=== PATIENT | female | born 1945 | race Caucasian/White ===

== ENCOUNTER 2016-04-27 05:25 | Emergency (ER) | payer OTHER ==
[~2016-04-27 05:25] MED LIST: AFRIN NASAL SP0.05 %; ALDACTONE25 MG PO; AMOXICILLIN500 M1 PO; ANTACID ANTI GAS PO; ASPIRIN 81 LOW81 MG PO; ATORVASTATIN CA40 MG PO; AUGMENTIN250 MG/5 M PO; CALCITRIOL0.25 MCG PO; CEFTIN500 MG PO; COUMADIN4 MG PO; COUMADIN5 MG PO; DITROPAN XL10 MG PO; FUROSEMIDE40 MG PO; GABAPENTIN300 MG; GABAPENTIN300 MG PO; GABAPENTIN600 MG PO; GLIMEPIRIDE1 MG PO; IRON325 MG PO; LEVAQUIN250 MG PO; LEVOTHYROXINE112 MCG PO; LISINOPRIL10 MG PO; LOTRIMIN AF1 % TOP; NITROFURANTOIN50 MG PO; NORTRIPTYLINE H10 MG PO; NYSTATIN100000 M2 TOP; OMEPRAZOLE20 M1 PO; OXYBUTYNIN CHLOR5 MG PO; OYSCO 500 PO; OYSTER SHELL CA1 TA5; PANTOPRAZOLE SO20 MG PO; PERCOCET1 TA1 PO; POLYETHYLENE; ROXICODONE5 MG PO; SPIRONOLACTONE25 MG PO; VENLAFAXINE H37.5 M1 PO; VITAMIN B-121000 MCG; VITAMIN D-31000 UNIT PO; WARFARIN SODIUM5 MG PO; [UNRECOGNIZED DRUG - OTHER]
--- NOTE | 2016-04-27 07:34 | DIAGNOSTIC IMAGING REPORT ---
PROCEDURE: CT CERVICAL SPINE W/O CONTRAST INDICATION: PAIN TECHNIQUE: Axial CT images were obtained through the cervical spine. Coronal and sagittal reformations were created. No comparison. COMPARISON: None. FINDINGS: Limited exam due to motion and ventral hardware artifact There is degenerative remodelling at the craniocervical junction and endplate spurring at the C1 lateral masses. Hypertrophic degeneration around the odontoid is present. Facet joint ankylosis bilaterally from C2-C5. Trace grade 1 anterolisthesis C3-4. Partial vertebral body ankylosis at C4-5. Endplate sclerosis inferiorly at C5 and throughout C6 with anterior and posterior endplate spurs. Trace anterolisthesis C7 on T1. No vertebral body fractures are visible. No pathologic subluxation. Straightening with slight kyphosis of the mid cervical spine. Severe disc height loss C4-C7. Significant facet arthropathy at most levels and multilevel bilateral foraminal narrowing. Moderate bony central canal stenosis at C5-6. No suspicious densities in the central canal. There is a tortuous, medial course of carotid arteries bilaterally. There is enlarged, calcified nodule measuring 9 mm in short axis in the retropharyngeal space at the C4-5 level, probably lymph node. No suspicious prevertebral soft tissue swelling. Calcifications in the right lobe of the thyroid gland. Another calcified lymph node dorsal to the right thyroid gland. Patent airway. Normal lung apices. IMPRESSION: 1. Given limitations, intact cervical spine. 2. Significant degenerative changes throughout the cervical spine, including posterior element ankylosis C2-C5, severe disc height loss C4-C7, endplate spurring, and central canal narrowing at C5-6. These result in multilevel bilateral foraminal narrowing as described. 3. Two calcified lymph nodes, one in the retropharyngeal space. 4. Findings called to the emergency room. All CT scans at this facility use dose modulation, iterative reconstruction, and/or weight-based dosing when appropriate to reduce radiation dose to as low as reasonably achievable.
--- NOTE | 2016-04-27 07:37 | DIAGNOSTIC IMAGING REPORT ---
PROCEDURE: CT HEAD WITHOUT CONTRAST INDICATION: Fell out of bed TECHNIQUE: Axial CT images were acquired through the head. Coronal and sagittal reformations were created. Thin slice axial CT images were obtained through the facial bones. Coronal and sagittal reformations were created. COMPARISON: 07/28/2015 FINDINGS: Head CT: Exam limited by patient motion. Mild to moderate cerebral cortical atrophy and moderate prominence of the ventricular system, stable. Scattered small patchy hypodensity in the periventricular and subcortical white matter. Focal hypodensity in the basal ganglia bilaterally, focal hypodensity in the left thalamus, right external and internal capsule. No new cortical defects. No intracranial hemorrhage or extraaxial fluid collections. Ventricles are normal in size, shape and position. There is no mass, mass effect or midline shift. The chavez-white matter differentiation is normal. There is no edema. Mild calcific atherosclerosis of the intracranial internal carotid arteries. The calvarium is intact. A lobular soft tissue opacification of the left sphenoid sinus, improved compared to the previous study and mild thickening of the ethmoids. Left-sided mastoid effusion. Mild diffuse soft tissue swelling over the frontal region centered just to the left of midline. Facial bones CT: Exam limited by motion. Mildly impacted left nasal bone fracture. No other fracture. Lobular sphenoid sinus disease with opacification of both sphenoid outflow tracts and mild thickening of the mucosa throughout the ethmoids. Small left mastoid effusion layering dependently. [place] morphology of nasal turbinate sac consistent with allergic rhinitis. Degenerative changes at the atlantodental interval. IMPRESSION: 1. No CT evidence of acute intracranial process. 2. Mild atrophy of the chronic prominence of the ventricular system slightly out of proportion. 3. Lacunar infarcts in the left thalamus and right deep white matter tracts. 4. Sphenoid sinus disease, improved compared to priors. 5. Mildly impacted nasal bone fracture. 6. Frontal soft tissue swelling without other underlying fracture. 7. Findings discussed with Dr. Palma at [address] scans at this facility use dose modulation, iterative reconstruction, and/or weight-based dosing when appropriate to reduce radiation dose to as low as reasonably achievable.
--- NOTE | 2016-04-27 07:45 | DIAGNOSTIC IMAGING REPORT ---
PROCEDURE: XR HAND 3 OR 4 VIEWS - RIGHT INDICATION: TRAUMA/INJURY TECHNIQUE: Three views of the right hand. COMPARISON: None. FINDINGS: Decreased mineralization. Chronic remodelling and flattening of the scaphoid resulting in collapse of the proximal carpal row and loss of articular space between carpal bones. Osteoarthritic remodelling at the first carpal metacarpal joint. No definite fractures. Diffuse joint space loss throughout the interphalangeal joints. Large spurs of the second through fourth metacarpal heads and slight subluxation at the MCP joints two through four. Soft tissue swelling at the base of the second and fourth digits. No suspicious soft tissue calcifications or foreign bodies. IMPRESSION: 1. No visible fractures. 2. Osteopenia. 3. Diffuse arthritic changes through the wrist and hand
--- NOTE | 2016-04-27 08:06 | DIAGNOSTIC IMAGING REPORT ---
PROCEDURE: XR CHEST 1 VIEW INDICATION: TRAUMA TECHNIQUE: Single view chest. 07:51 hours COMPARISON: 12/25/2015 FINDINGS: Stable cardiomediastinal contour and central vessels. Low lung volumes. Visible lung blanc are clear. Embolization coils project in the left lower lung. No pneumothorax. Visible osseous structures are intact. Right humeral prosthesis partially seen. IMPRESSION: 1. No evidence of acute chest trauma.
--- NOTE | 2016-04-27 08:45 | ED NURSING NOTES ---
Clinical Report - Nurses [facility] [address] [place] [address] 04/27/2016 5:28 [id number] Triage time 05:30. Acuity: LEVEL 3. Chief Complaint: FALL OUT OF BED (last night at "about 2030"). TELMA COMA SCORE: Telma Coma Scale: 14- eyes open spontaneously (4); best verbal response- disoriented (4); best motor response- obeys commands (6). --05:38 Eris Bolivar R.N. 05:30 04/27/16. BP: 146/87. HR: 107. RR: 20. O2 saturation: 96% on room air. Temp: 98.2 F. Pain level now: 09/14. --05:38 Eris Bolivar R.N. 0538 - Bedside POC glucose= 323. --06:19 Eris Bolivar R.N. Weight: 70.3 kg stated. Height/Length: 66 inches Per Patient. BMI: 25. --05:33 Eris Bolivar R.N. Medications Antacid Oral. Asa 81mg day. Atorvastatin Calcium Oral 80 mg, daily. Augmentin Oral (Tablet 875-125 mg) 1 tablet, 2x a day. Calcitriol 0.25mg day. Ferrous Sulfate Oral. Furosemide Oral 40 mg, daily. Gabapentin Oral. Levothyroxine Sodium Oral 112 mcg, daily. Lisinopril Oral 20 mg, daily. Lotrimin cream 25 powder prn . Nitrofurantoin Monohyd Macro Oral (Capsule 100 mg). --05:34 Eris Bolivar R.N. Nortriptyline HCl Oral 10 mg, at bedtime. Nystatin External. Omeprazole Oral 20 mg, daily. Oxybutynin Chloride Oral 5 mg, daily. OxyCODONE HCl Oral 10 mg, 4x a day as needed. Oyster shell 500mg/200mg day. Polyerhylene glycol 3350 powder, day. Spironolactone Oral 25 mg, daily. Venlafaxine HCl ER Oral 225mg day. Vit b - 12 1000mg day. Vit d-3 2000 mg day . Warfarin Sodium Oral 4 mg s/s//// 5mg onm//. --05:34 Eris Bolivar R.N. Allergies Sulfa Antibiotics. --05:34 Eris Bolivar R.N. History Arrived by EMS. Historian: patient. Unaccompanied. Location of injuries: neck, head, face and left knee. This occurred last night. She has had neck pain. Trauma activation: Pre-hospital notification of patient arrival was received. PAST MEDICAL HX: Diabetes mellitus. SOCIAL HX: Former smoker. Never smoker. Occasional alcohol use. No drug use. FALL RISK ASSESSMENT: Fall risk assessment completed. Risk factors identified include patient age greater than 65 years, history of fall and impairment of mobility. --05:38 Eris Bolivar R.N. PROBLEMS: Urinary Incontinence. Urinary. Abnormal Test. Renal Insufficiency. Hypotension. Renal Failure. GI Bleeding. Thyroid Disease. Hypertension. Congestive Heart Failure. Diabetes Mellitus. CVA - Cerebrovascular Accident. UTI - Urinary Tract Infection. Fall. Hereditary hemorrhagic telangiectasia. Anemia. Hyperlipidemia. Lower Extremity Pain. Arthritis. Sleep Apnea. PE. Gerd. Hypercholesterolemia. Anxiety. Anemia . Amp lt leg bka . DVT - Deep Venous Thrombosis. --05:35 Eris Bolivar R.N. ADDITIONAL SURGERIES: Amputation Below Knee. IVC Filter. --05:35 Eris Bolivar R.N. Interventions ID band on patient. To treatment room. --05:38 Eris Bolivar R.N. PHYSICAL ASSESSMENT GENERAL / NEURO / PSYCH: The patient is disoriented to time. RESPIRATORY: Respirations not labored. Decreased breath sounds diffusely over both lungs. CVS: Capillary refill less than 2 seconds. SKIN: ( patient has swelling and bruises around both eyes, abrasion to left knee, and 2 posterior pressure ulcers (approx stage 2) on left leg). --05:41 Eris Bolivar R.N. To room via stretcher. GENERAL / NEURO / PSYCH: ( If patient had LOC is unknown. EMS states that the patient had an unwitnessed fall from bed last night. the patient states that she was trying to set her cell phone on her nightstand and fell from her bed, around 2030 last night. Her facility staff (at [facility]) found her this morning on the floor.). --06:16 Eris Bolivar R.N. 06:20. EXTREMITIES: ( Patient's right ring finger is notably swollen circumferentially and bruised, painful to movement and palpation.). --06:28 Eris Bolivar R.N. NURSING PROGRESS NOTES Soft c-collar applied. Patient gowned. Reassurance given. The patient is calm and resting quietly. Two patient identifiers checked. Call light placed in reach. Side rails up x 2. Bed placed in lowest position. Brakes of bed on. Patient ready for evaluation- chart flagged. Patient waiting for evaluation. --05:43 Eris Bolivar R.N. 05:45 04/27/2016 Site #1 started via IV in the left antecubital space with an 20g angiocath, with aseptic technique and good blood return; one attempt. Blood drawn: rainbow set. Labeled in the presence of the patient and sent to the lab. Saline lock flushed with 10 mL saline. --05:47 Hetal Treviño R.N. 06:11. ( Patient returned from CT). --06:16 Eris Bolivar R.N. Call light placed in reach. Side rails up x 2. Bed placed in lowest position. Brakes of bed on. --06:17 Eris Bolivar R.N. <<STRICKEN ENTRY-- 06:59 04/27/2016 Started bag #1 500 mL IV Fluids IV NS (Saline); bolus of 500 mL over 1 hour(s) then at 100 mL/hr over 5 hour(s) via site #1 via IV pump. Allergies verified and confirmed 5 rights. IV patency established. IV site checked: no pain, redness, or swelling. IV flushed thoroughly pre- and post-medication administration. --06:59 Eris Bolivar R.N. --END STRIKE>> Change to Details. --07:00 Eris Bolivar R.N. 06:59 04/27/2016 Started bag #1 500 IV Fluids IV NS (Saline); bolus of 500 mL over 1 hour(s) then at 100 mL/hr over 4 hour(s) via site #1 via IV pump. Allergies verified and confirmed 5 rights. IV patency established. IV site checked: no pain, redness, or swelling. IV flushed thoroughly pre- and post-medication administration. --07:00 Eris Bolivar R.N. 07:00 04/27/16. 10 fr in/out catheterization placed. Reason for indwelling catheter: decubitus ulcer with incontinence. During procedure hand hygiene observed and sterile equipment and aseptic technique used. Return of yellow-colored clear urine; odor is foul-smelling. She tolerated procedure well (pericare completed following removal of catheter, skin around labia and on upper thighs excoriated. barrier cleanser utilized.). --07:11 Hetal Treviño R.N. Care transferred and report given (RICO Mckenna and RICO Kelley (ER Nurses, both received report and assumed patient care.)). --07:13 Eris Bolivar R.N. 07:14 04/27/16. BP: 151/84. HR: 106. RR: 14. O2 saturation: 98% on room air. Pain level now: 09/14. --07:15 Bala Hatfield R.N. Care transferred and report received (from RICO Quinonez). ( Pt resting in bed, daughter at bedside, introduced self, IVF infusing, Pt is alert, cooperative, updated her on POC.). --07:15 Bala Hatfield R.N. ( Pt resting in room, daughter and other visitor at bedside, Pt asking to eat and drink but denies other needs. Portable CXR completed.). --07:55 Bala Hatfield R.N. 07:54 04/27/16. Temp: 97.7 F. --07:55 Bala Hatfield R.N. 07:58 04/27/2016 IV Fluids IV NS via IV site #1 Rate Changed: bag #1 decreased to 100 mL/hr via IV pump. IV patency established. IV site checked: no pain, redness, or swelling. IV flushed thoroughly. Confirmed 5 Rights. --07:58 Bala Hatfield R.N. ( MD in to discuss POC with Pt and visitors. Pt to return to [facility] this morning.). --08:32 Bala Hatfield R.N. ( Accucheck of 334.). --08:48 Bala Hatfield R.N. 08:49 04/27/2016 Insulin REG IVP 6 unit given. via site #1. Allergies verified and confirmed 5 rights. IV patency established. IV site checked: no pain, redness, or swelling. IV flushed thoroughly pre- and post-medication administration. IVP given by RN. --08:49 Bala Hatfield R.N. 09:34 04/27/2016 IV Fluids IV NS Discontinued: bag #1 STOPPED upon discharge. Total amount infused: 655 ml mL. IV patency established. IV site checked: no pain, redness, or swelling. IV flushed thoroughly. --09:44 Bala Hatfield R.N. 09:40 04/27/2016 Site #1 removed upon discharge. Bandage applied. --09:45 Bala Hatfield R.N. 09:40 04/27/2016 Insulin REG IVP Response: no adverse reaction (Blood Glucose improving. 297 at 0924.). --09:45 Bala Hatfield R.N. DISPOSITION / DISCHARGE ( Rechecked Accucheck: 297. PT is resting in bed, awaiting transportation back to [facility]. IVF still infusing.). --09:24 Bala Hatfield R.N. 09:23 04/27/16. BP: 159/115. HR: 102. RR: 20. O2 saturation: 97% on room air. Temp: 97.5 F. Pain level now: 710. --09:24 Bala Hatfield R.N. Condition at departure: improved and stable. The goals identified in the patient's plan of care were met. No learning barriers present. Discharge instructions provided and reviewed with the family. Patient and family verbalized understanding. Written instructions provided in Irish. The patient was discharged by the physician. She was discharged to the [facility] and accompanied by family. She left the Emergency Department via ambulance and ([facility]) and on a stretcher. Driving (Ambulance). --09:40 Bala Hatfield R.N. 09:39 04/27/16. BP: 169/85. --09:40 Bala Hatfield R.N. Departure time: 09:43 Apr 27 2016. --09:44 Bala Hatfield R.N. Locked/Released at 04/27/2016 10:28 by Bala Hatfield R.N.
--- NOTE | 2016-04-27 08:45 | ED ORDER SUMMARY ---
..... Patient: ABBIE CANELA OrderSheet [facility] VisitID: [id number] [address] [place] [address] 71y, F Registration Date/Time: 04/27/2016 ORDER SHEET Weight: 70.3 kg (stated) Allergies: Sulfa Antibiotics GENERAL ORDERS: CT Head wo Cont Urgent (05:37 04/27/2016 [facility] [employer] Assistant verbal order read back to Vesna SEVILLA) (Ack 5:40 SRedmond) (6:21 DDavis R.N.) (6:22 GUnger) CT Cervical Spine wo Cont Urgent (05:37 04/27/2016 [facility] [employer] [facility] verbal order read back to Vesna SEVILLA) (Ack 5:40 SRedmond) (6:21 DDavis R.N.) (6:22 GUnger) CT Sinus/Facial Bones wo Cont Urgent (05:37 04/27/2016 [facility] [employer] Assistant verbal order read back to Vesna SEVILLA) (Ack 5:40 SRedmond) (6:21 DDavis R.N.) (6:22 GUnger) CBC w Diff Urgent (05:38 04/27/2016 [facility] [employer] [facility] verbal order read back to Vesna SEVILLA) (Ack 5:40 SRedmond) (5:43 DDavis R.N.) CMP Urgent (05:38 04/27/2016 [facility] [employer] [facility] verbal order read back to Vesna SEVILLA) (Ack 5:40 SRedmond) (5:43 DDavis R.N.) PT with INR Urgent (05:38 04/27/2016 [facility] [employer] [facility] verbal order read back to Vesna SEVILLA) (Ack 5:40 SRedmond) (5:43 DDavis R.N.) PTT Urgent (05:38 04/27/2016 [facility] [employer] [facility] verbal order read back to Vesna SEVILLA) (Ack 5:40 SRedmond) (5:43 DDavis R.N.) CPK Urgent (06:19 04/27/2016 EInderbitzen R.N. verbal order read back to Vesna SEVILLA) (Ack 6:21 SRedmond) (6:45 EInderbitzen R.N.) Hand 3 or 4V Right Urgent (06:23 04/27/2016 DDavis R.N. per protocol) (6:26 DDavis R.N.) UA-Culture if indicated Urgent (06:47 04/27/2016 Vesna SEVILLA) (Ack 6:49 SRedmond) (7:11 DDavis R.N.) Chest 1V Urgent (07:41 04/27/2016 Dilan verbal order read back to Vesna SEVILLA) (Ack 7:43 Dilan) (7:46 MCook R.N.) MEDICATION ORDERS: IV FLUIDS: IV Saline Lock (05:45 04/27/2016 Yessy Recinos verbal order read back to Vesna SEVILLA) (5:47 EIndercoyzen R.N.) IV NS : initial bolus 500 mL (1000 mL/hr), then 100 mL/hr for 4h (NOW); Urgent (06:50 04/27/2016 Vesna SEVILLA) (6:59 DDavis R.N.) Insulin Reg IV 6 units (HIGH ALERT MEDICATION, NOW) (08:32 04/27/2016 Vesna SEVILLA) (8:49 Yony R.N.) ORDER SHEET NOTES: [Electronically signed by Bala Hatfield R.N. (10:04/27/2016)] [Electronically signed by Saji Palma MD (09:26 04/28/2016)] [Electronically locked/signed by Bala Hatfield R.N. (10:04/27/2016)]
--- NOTE | 2016-04-27 08:45 | ED CLINICAL REPORT ---
Clinical Report - Physicians/Mid Levels [facility] [address] [place] [address] 04/27/2016 5:28 Patient: ABBIE CANELA Time Seen: 05:40. Arrived- By ambulance. Historian- patient and EMS personnel. History limited by dementia. Physical Exam limited by dementia. HISTORY OF PRESENT ILLNESS Location of injuries- head, face, neck and right hand. Chief Complaint: FALL. The injury occurred last night. Fell. Occurred at a jail. The patient complains of mild pain. No neck pain. The patient had loss of consciousness. (uncertain). (daughter reports that she is a resident of a jail. She says that the patient isnot ambulatory and that she is quite surprised that her mother fell out of the bed. She said that her mother is not able to roll herself in bed or transfer. It is unclear how long she might have been on the floor. The patient reports that she was reaching to put a phone on a nightstand and that's what caused her to fall however the daughter says that this is not possible. It is unclear how long the patient was on the floor for. She complains of pain in her nose and in her jaw. She also complains of pain in her right hand. Especially on her right fifth finger.). REVIEW OF SYSTEMS All systems otherwise negative, except as recorded above. PAST HISTORY Problems: Urinary Incontinence. Hypotension. Renal Failure. GI Bleeding. Thyroid Disease. Hypertension. Congestive Heart Failure. Diabetes Mellitus. CVA - Cerebrovascular Accident. UTI - Urinary Tract Infection. Hereditary hemorrhagic telangiectasia. Anemia. Hyperlipidemia. Lower Extremity Pain. Arthritis. Sleep Apnea. PE. Gerd. Hypercholesterolemia. Anxiety. Anemia . DVT - Deep Venous Thrombosis. Additional Surgeries: Amputation Below Knee. IVC Filter. Medications: Nortriptyline HCl Oral 10 mg, at bedtime. Nystatin External. Omeprazole Oral 20 mg, daily. Oxybutynin Chloride Oral 5 mg, daily. OxyCODONE HCl Oral 10 mg, 4x a day as needed. Oyster shell 500mg/200mg day. Polyerhylene glycol 3350 powder, day. Spironolactone Oral 25 mg, daily. Venlafaxine HCl ER Oral 225mg day. Vit b - 12 1000mg day. Vit d-3 2000 mg day . Warfarin Sodium Oral 4 mg s/s//// 5mg onm//. Antacid Oral. Asa 81mg day. Atorvastatin Calcium Oral 80 mg, daily. Calcitriol 0.25mg day. Ferrous Sulfate Oral. Furosemide Oral 40 mg, daily. Gabapentin Oral. Levothyroxine Sodium Oral 112 mcg, daily. Lisinopril Oral 20 mg, daily. Lotrimin cream 25 powder prn . Nitrofurantoin Monohyd Macro Oral (Capsule 100 mg). Allergies: Sulfa Antibiotics. SOCIAL HISTORY Resides in a jail. ADDITIONAL NOTES The nursing notes have been reviewed. PHYSICAL EXAM Vital Signs: 04/27/2016 05:30 BP: 146/87. HR: 107. RR: 20. O2 saturation: 96%. Temp: 98.2 F. Pain level now: 8/10. Have been reviewed. Appearance: Alert. Head: Left mandible: mild tenderness. Eyes: Pupils equal, round and reactive to light. EOM intact. Right periorbital area: ecchymosis. Left periorbital area: ecchymosis. ENT: No dental injury. Pharynx normal. Nose: moderate tenderness and mild swelling. No septal hematoma. Neck: Painless ROM. Non-tender. No vertebral tenderness. CVS: Heart sounds normal. Respiratory: Breath sounds normal. Abdomen: No visible injury. Soft and nontender. Bowel sounds normal. No organomegaly. No mass. Obese. Back: No tenderness. ROM normal. No vertebral point tenderness. Skin: Skin warm and dry. She has an medium superficial abrasion on the left knee. Extremities: Right ring finger: moderate tenderness and medium sized ecchymosis. Neurovascular intact distally. Pelvis stable. Right leg. (well healed BKA). Neuro: Altered mental status: confused. Eyes open spontaneously. Best verbal response: disoriented. Best motor response: obeys commands. LABS, X-RAYS, AND EKG Chest X-ray: (PROCEDURE: XR CHEST 1 VIEW INDICATION: TRAUMA TECHNIQUE: Single view chest. 07:51 hours COMPARISON: 12/25/2015 FINDINGS: Stable cardiomediastinal contour and central vessels. Low lung volumes. Visible lung blanc are clear. Embolization coils project in the left lower lung. No pneumothorax. Visible osseous structures are intact. Right humeral prosthesis partially seen. IMPRESSION: 1. No evidence of acute chest trauma.). Rt Hand X-ray: (IMPRESSION: 1. No visible fractures. 2. Osteopenia. 3. Diffuse arthritic changes through the wrist and hand). The X-rays were interpreted by the radiologist and contemporaneously by me. CT Face: IMPRESSION: 1. No CT evidence of acute intracranial process. 2. Mild atrophy of the chronic prominence of the ventricular system slightly out of proportion. 3. Lacunar infarcts in the left thalamus and right deep white matter tracts. 4. Sphenoid sinus disease, improved compared to priors. 5. Mildly impacted nasal bone fracture. 6. Frontal soft tissue swelling without other underlying fracture. The study was interpreted contemporaneously by me and discussed with the radiologist. CT C-Spine: (IMPRESSION: 1. Given limitations, intact cervical spine. 2. Significant degenerative changes throughout the cervical spine, including posterior element ankylosis C2-C5, severe disc height loss C4-C7, endplate spurring, and central canal narrowing at C5-6. These result in multilevel bilateral foraminal narrowing as described. 3. Two calcified lymph nodes, one in the retropharyngeal space.). The study was interpreted contemporaneously by me and discussed with the radiologist. CT Head: (FINDINGS: Head CT: Exam limited by patient motion. Mild to moderate cerebral cortical atrophy and moderate prominence of the ventricular system, stable. Scattered small patchy hypodensity in the periventricular and subcortical white matter. Focal hypodensity in the basal ganglia bilaterally, focal hypodensity in the left thalamus, right external and internal capsule. No new cortical defects. No intracranial hemorrhage or extraaxial fluid collections. Ventricles are normal in size, shape and position. There is no mass, mass effect or midline shift. The chavez-white matter differentiation is normal. There is no edema. Mild calcific atherosclerosis of the intracranial internal carotid arteries. The calvarium is intact. A lobular soft tissue opacification of the left sphenoid sinus, improved compared to the previous study and mild thickening of the ethmoids. Left-sided mastoid effusion. Mild diffuse soft tissue swelling over the frontal region centered just to the left of midline.). The study was interpreted contemporaneously by me and discussed with the radiologist. Laboratory Tests: UA-Culture if indicated: (BETHANY: 04/27/2016 07:00) ( MsgRcvd 04/27/2016 07:41) Final results Test Result Flag Units (Reference) URINE COLOR YELLOW URINE APPEARANCE CLEAR URINE GLUCOSE 3+ (NEGATIVE) URINE BILIRUBIN NEGATIVE (NEGATIVE) URINE KETONE NEGATIVE (NEGATIVE) URINE SPECIFIC GRAVITY 1.020 (1.010-1.030) URINE PH 5.5 (5.0-8.0) URINE PROTEIN NEGATIVE (NEGATIVE) URINE UROBILINOGEN 0.2 EU/dL (0.2-1.0) URINE NITRITE NEGATIVE (NEGATIVE) URINE BLOOD 1+ (NEGATIVE) URINE LEUK ESTERASE NEGATIVE (NEGATIVE) URINE RBC 1-3 rbc/hpf (0-1) URINE WBC 1-3 wbc/hpf (0-1) URINE EPITHELIAL CELLS 1-3 EPI/hpf (0-5) URINE BACTERIA NONE SEEN (NONE SEEN) URINE COMMENT CULT NOT INDICATED URINE CULTURES ARE SET-UP BASED ON THE FOLLOWING CRITERIA:POSITIVE NITRITEPOSITIVE LEUKOCYTE ESTERASEGREATER THAN 10 WHITE BLOOD CELLSMODERATE (2+) OR GREATER BACTERIA CBC w Diff: (BETHANY: 04/27/2016 05:40) ( MsgRcvd 04/27/2016 05:53) Final results Test Result Flag Units (Reference) WHITE BLOOD COUNT 12.8 H K/uL (4.5-11.5) RED BLOOD COUNT 3.62 L M/uL (4.00-5.20) HEMOGLOBIN 11.3 L gm/dL (12.0-16.0) HEMATOCRIT 34.9 L % (36.0-46.0) MEAN CELL VOLUME 96 fL (80-100) MEAN CORPUSCULAR HGB 31 pg (26-34) MEAN CORPUSCULAR HGB CONC 32 g/dL (31-37) RED CELL DISTRIBUTION WIDTH 16.9 H % (11.6-14.8) PLATELET COUNT 273 K/uL (150-400) NEUTROPHIL % 92.5 H % (50-75) LYMPH % 4.0 L % (25-40) MONO % 2.7 L % (3-14) EOSINOPHIL % 0.3 % (0-4) BASOPHIL % 0.5 % (0-2) PT with INR: (BETHANY: 04/27/2016 05:40) ( [facility] 04/27/2016 06:03) Final results Test Result Flag Units (Reference) INR 2.5 H (0.8-1.2) Low Intensity Therapy: INR 1.5-2.0 PT range 18.5-23.1Mod.Intensity Therapy: INR 2.0-3.0 PT range 23.1-31.5High Intensity Therapy: INR 2.5-3.5 PT range 27.4-35.5High Intensity Therapy 2: INR 3.0-4.0 PT range 31.5-39.3 APTT 41 H SECONDS (24-34) CPK: (BETHANY: 04/27/2016 05:40) ( [facility] 04/27/2016 06:57) Final results Test Result Flag Units (Reference) CPK 524 H U/L (24-260) CK-MB 7.9 H ng/mL (0.5-3.2) %CKMB 1.5 % (0.0-4.0) CMP: (BETHANY: 04/27/2016 05:40) ( [facility] 04/27/2016 06:05) Final results Test Result Flag Units (Reference) GLUCOSE 396 H mg/dL (70-110) BUN 28 H mg/dL (7-18) CREATININE 1.8 H mg/dL (0.6-1.3) Estimated GFR 29.31 mL/min Estimated GFR- 35.53 mL/min Note: Persistent reduction over 3 months in eGFR<60 mL/min/1.73 m2 defines CKD. Patients with eGFR values>=60 mL/min/1.73 m2 may also have CKD if evidence ofpersistent proteinuria. Additional information may be foundat www.kidney.org. SODIUM 139 mmol/L (136-145) POTASSIUM 4.3 mmol/L (3.5-5.1) CHLORIDE 102 mmol/L (98-107) CARBON DIOXIDE 26 mmol/L (21-32) CALCIUM 10.4 H mg/dL (8.5-10.1) TOTAL PROTEIN 7.4 g/dL (6.4-8.2) ALBUMIN 3.5 g/dL (3.3-5.0) BILIRUBIN, TOTAL 0.3 mg/dL (0.0-1.0) ALKALINE PHOSPHATASE 108 U/L (46-116) AST (SGOT) 21 U/L (15-37) ALT (SGPT) 29 U/L (12-78) . PROGRESS AND PROCEDURES Course of Care: Patient is stable. Family counseled in person several times regarding the patient's test results and diagnosis. Old medical records reviewed. Disposition: Discharged to jail. Condition: stable. CLINICAL IMPRESSION Chronic dementia. Minor closed head injury. Unknown whether a loss of consciousness occurred. Mild rhabdomyolysis Chronic renal insufficiency. Single superficial abrasion to the left knee. Contusion to the right ring finger. Closed nondisplaced nasal fracture. Diabetes with hyperglycemia. Fall from bed. INSTRUCTIONS Protect wound and keep wound area clean. Change dressing twice daily. You may wash wounds briefly, then dry. Apply neosporin twice daily. Warnings: HEAD INJURY PRECAUTIONS: An observer must check on the patient every 2 hours for the next 24 hours (awaken if sleeping) to confirm that the patient responds as expected, is not confused, has no new weakness or numbness, and has no other problems. GENERAL WARNINGS: Return or contact your physician immediately if your condition worsens or changes unexpectedly, if not improving as expected, or if other problems arise. Your Current Medications: CONTINUE TAKING THE FOLLOWING MEDICATIONS: Antacid Oral. Asa 81mg day*. Atorvastatin Calcium Oral : 80 mg daily. Follow-up: Follow up with your doctor in two days. Call for the next available appointment. Understanding of the discharge instructions verbalized by family. (Electronically signed by Saji Palma MD 04/28/2016 9:26)
--- NOTE | 2016-04-27 08:45 | ED ORDER SUMMARY ---
..... Patient: ABBIE CANELA OrderSheet [facility] VisitID: [id number] [address] [place] [address] 71y, F Registration Date/Time: 04/27/2016 ORDER SHEET Weight: 70.3 kg (stated) Allergies: Sulfa Antibiotics GENERAL ORDERS: CT Head wo Cont Urgent (05:37 04/27/2016 CHagerty ER Dovetailer verbal order read back to Vesna SEVILLA) (Ack 5:40 SRedmond) (6:21 DDavis R.N.) (6:22 GUnger) CT Cervical Spine wo Cont Urgent (05:37 04/27/2016 CHagerty ER Dovetailer verbal order read back to Vesna SEVILLA) (Ack 5:40 SRedmond) (6:21 DDavis R.N.) (6:22 GUnger) CT Sinus/Facial Bones wo Cont Urgent (05:37 04/27/2016 CHagerty ER Dovetailer verbal order read back to Vesna SEVILLA) (Ack 5:40 SRedmond) (6:21 DDavis R.N.) (6:22 GUnger) CBC w Diff Urgent (05:38 04/27/2016 CHagerty ER Dovetailer verbal order read back to Vesna SEVILLA) (Ack 5:40 SRedmond) (5:43 DDavis R.N.) CMP Urgent (05:38 04/27/2016 CHagerty ER Dovetailer verbal order read back to Vesna SEVILLA) (Ack 5:40 SRedmond) (5:43 DDavis R.N.) PT with INR Urgent (05:38 04/27/2016 CHagerty ER Dovetailer verbal order read back to Vesna SEVILLA) (Ack 5:40 SRedmond) (5:43 DDavis R.N.) PTT Urgent (05:38 04/27/2016 CHagerty ER Dovetailer verbal order read back to Vesna SEVILLA) (Ack 5:40 SRedmond) (5:43 DDavis R.N.) CPK Urgent (06:19 04/27/2016 EInderbitzen R.N. verbal order read back to Vesna SEVILLA) (Ack 6:21 SRedmond) (6:45 EInderbitzen R.N.) Hand 3 or 4V Right Urgent (06:23 04/27/2016 DDavis R.N. per protocol) (6:26 DDavis R.N.) UA-Culture if indicated Urgent (06:47 04/27/2016 Vesna SEVILLA) (Ack 6:49 SRedmond) (7:11 DDavis R.N.) Chest 1V Urgent (07:41 04/27/2016 Dilan verbal order read back to Vesna SEVILLA) (Ack 7:43 Dilan) (7:46 MCook R.N.) MEDICATION ORDERS: IV FLUIDS: IV Saline Lock (05:45 04/27/2016 Yessy Recinos verbal order read back to Vesna SEVILLA) (5:47 EIndercoyzen R.N.) IV NS : initial bolus 500 mL (1000 mL/hr), then 100 mL/hr for 4h (NOW); Urgent (06:50 04/27/2016 Vesna SEVILLA) (6:59 DDavis R.N.) Insulin Reg IV 6 units (HIGH ALERT MEDICATION, NOW) (08:32 04/27/2016 Vesna SEVILLA) (8:49 Yony R.N.) ORDER SHEET NOTES: [Electronically signed by Bala Hatfield R.N. (10:04/27/2016)] [Electronically signed by Saji Palma MD (09:26 04/28/2016)] [Electronically locked/signed by Bala Hatfield R.N. (10:04/27/2016)]
--- NOTE | 2016-04-28 09:26 | ED MED RECONCILIATION SUMMARY ---
Patient: ABBIE CANELA Medication Reconciliation Report [facility] VisitID: [id number] [address] [place] [address] 71y, F Registration Date/Time: 04/27/2016 Weight: 70.3 kg Height/Length: 66 in. BMI: 25.0 ALLERGIES: Sulfa Antibiotics The patient's Home Medications are listed below: CONTINUE TAKING THE FOLLOWING MEDICATIONS: Antacid Oral Asa 81mg day Atorvastatin Calcium Oral 80 mg, daily THE FOLLOWING MEDICATIONS NEED TO BE RECONCILED: Calcitriol 0.25mg day Ferrous Sulfate Oral Furosemide Oral 40 mg, daily Gabapentin Oral Levothyroxine Sodium Oral 112 mcg, daily Lisinopril Oral 20 mg, daily Lotrimin cream 25 powder prn Nitrofurantoin Monohyd Macro Oral (100 mg) Nortriptyline HCl Oral 10 mg, at bedtime Nystatin External Omeprazole Oral 20 mg, daily Oxybutynin Chloride Oral 5 mg, daily OxyCODONE HCl Oral 10 mg, 4x a day Oyster shell 500mg/200mg day Polyerhylene glycol 3350 powder, day Spironolactone Oral 25 mg, daily Venlafaxine HCl ER Oral 225mg day Vit b - 12 1000mg day Vit d-3 2000 mg day Warfarin Sodium Oral 4 mg s/s//// 5mg on// The source(s) of the original Home Medication information: Not obtained. The following Medications were given to the patient in the Emergency Department: IV NS IV Fluids bolus 500 mL over 1 hour(s), then 100 mL/hr, administered: 04/27/2016 6:59:00 AM Insulin REG [IVP] IVP 6 unit, administered: 04/27/2016 8:49:00 AM The following Medications were prescribed to the patient: None.
--- NOTE | 2016-04-28 09:26 | ED MAR SUMMARY ---
..... Medication Administration Record [facility] [address] [place] [address] Patient: ABBIE CANELA Visit ID: [id number] 71y, F Weight: 70.3 kg Height/Length: 66 in BMI: 25 ALLERGIES: Sulfa Antibiotics Start 06:59 04/27/2016 Eris Bolivar R.N., Stop 09:34 04/27/2016 Bala Hatfield R.N. Medication Administered: IV NS (SALINE), Dose: IV Fluids over 4 hour(s), Rate: 100 mL/hr, Bolus: 500 mL over 1 hour(s), Dispensed: 500 mL bag, Site: #1 left AC. Medication Ordered: IV NS : initial bolus 500 mL (1000 mL/hr), then 100 mL/hr for 4h (NOW); Urgent. Given 08:49 04/27/2016 Bala Hatfield R.N. Medication Administered: INSULIN REG [IVP], Dose: 6 unit IVP, Site: #1 left AC. Medication Ordered: Insulin Reg IV 6 units (HIGH ALERT MEDICATION, NOW).
--- NOTE | 2016-04-28 09:26 | ED DISCHARGE INSTRUCTIONS ---
Patient: ABBIE CANELA General Instructions [facility] VisitID: [id number] [place] [address] 71y, F Registration Date/Time: 04/27/2016 Chronic dementia. Minor closed head injury. Unknown whether a loss of consciousness occurred. Mild rhabdomyolysis Chronic renal insufficiency. Single superficial abrasion to the left knee. Contusion to the right ring finger. Closed nondisplaced nasal fracture. Diabetes with hyperglycemia. Fall from bed. INSTRUCTIONS Protect wound and keep wound area clean. Change dressing twice daily. You may wash wounds briefly, then dry. Apply neosporin twice daily. Warnings: HEAD INJURY PRECAUTIONS: An observer must check on the patient every 2 hours for the next 24 hours (awaken if sleeping) to confirm that the patient responds as expected, is not confused, has no new weakness or numbness, and has no other problems. GENERAL WARNINGS: Return or contact your physician immediately if your condition worsens or changes unexpectedly, if not improving as expected, or if other problems arise. Your Current Medications: CONTINUE TAKING THE FOLLOWING MEDICATIONS: Antacid Oral. Asa 81mg day*. Atorvastatin Calcium Oral : 80 mg daily. Follow-up: Follow up with your doctor in two days. Call for the next available appointment. Understanding of the discharge instructions verbalized by family. ADDITIONAL INFORMATION Fall, Uncertain Cause You have had a fall today. but the cause of your fall is not certain. Falls can occur due to slipping, tripping or losing your balance. A fall can also occur from a fainting spell or seizure. Because the cause of your fall today is not certain, it is possible that a fainting spell or seizure was the cause. This means that it could happen again, without warning. If you fall again, without a cause, then you should return to this facility promptly to have further tests. Otherwise, follow up with your doctor as explained below. Home Care: 1) Rest today and resume your normal activities as soon as you are feeling back to normal. It is best to remain with someone who can check on you for the next 24 hours to watch for another episode of falling. 2) If you were injured during the fall, follow the advice from your doctor regarding care of your injury. 3) If you become light-headed or dizzy, lie down immediately or sit and lean forward with your head down. 4) As a precaution, do not drive a car or operate dangerous equipment, do not take a bath alone (use a shower instead) and do not swim alone until you see your doctor. A condition causing fainting or seizures must be ruled out before resuming these activities. 5)You may use acetaminophen (Tylenol) or ibuprofen (Motrin, Advil) to control pain, unless another pain medicine was prescribed. [ NOTE : If you have chronic liver or kidney disease or ever had a stomach ulcer or GI bleeding, talk with your doctor before using these medicines.] 6) Keep your appointments for any further testing that may have been scheduled for you. Follow Up: Unless, given other advice, call your doctor on the next office day to advise of your fall and to schedule an appointment. Get Prompt Medical Attention if any of the following occur: -- Another unexplained fall -- Dizziness, fainting or seizure -- Severe headache -- Chest pain or shortness of breath -- Palpitations (very rapid or very slow or irregular heart beat) -- Blood in vomit, stools (black or red color) -- Weakness of an arm or leg or one side of the face -- Difficulty with speech or vision Abrasions Abrasions are skin scrapes. Their treatment depends on how large and deep the abrasion is. Home Care: If you were given a bandage, change it once a day. If your bandage sticks to the wound, soak it in warm water until it loosens. Wash the area with soap and water to remove all the cream/ointment. You may do this in a sink, under a tub faucet or shower. Rinse off the soap and pat dry with a clean towel. Reapply cream/ointment according to your doctor's instructions. This will prevent infection and help prevent the bandage from sticking. Cover the wound with a fresh non-stick bandage (Telfa). Repeat steps 1 to 4 daily, or as directed by your doctor. If the bandage becomes wet or dirty, change it as soon as possible. You may use acetaminophen (Tylenol) or ibuprofen (Motrin, Advil) to control pain, unless another pain medicine was prescribed. [ NOTE : If you have chronic liver or kidney disease or ever had a stomach ulcer or GI bleeding, talk with your doctor before using these medicines.] Do not use ibuprofen in children under six months of age. Follow Up with your physician or this facility as directed by our staff. Most skin wounds heal within ten days. However, an infection may occur despite proper treatment. Therefore, look for the early signs of infection listed below. Get Prompt Medical Attention if any of the following occur: Increasing pain in the wound Increasing redness or swelling Pus coming from the wound Fever of 100.4F (38C) or higher, or as directed by your healthcare provider Contusion: Finger You have a CONTUSION of your finger. This causes local pain, swelling and sometimes bruising. There are no broken bones. This injury takes a few days to a few weeks to heal. A finger contusion may be treated with a splint or "augusta tape" (taping the injured finger to the one next to it for support). Minor contusions may require no additional support. Home Care: 1) Keep your hand elevated to reduce pain and swelling. This is very important during the first 48 hours. 2) Apply an ice pack (ice cubes in a plastic bag, wrapped in a towel) over the injured area for 20 minutes every 1-2 hours the first day. You should continue with ice packs 3-4 times a day for the next two days. Continue the use of ice packs for relief of pain and swelling as needed. 3) If augusta tape was applied and it becomes wet or dirty, change it. You may replace it with paper, plastic or cloth tape. Cloth tape and paper tapes must be kept dry. Keep the augusta tape in place for at least one week. 4) You may use acetaminophen (Tylenol) or ibuprofen (Motrin, Advil) to control pain, unless another pain medicine was prescribed. [ NOTE : If you have chronic liver or kidney disease or ever had a stomach ulcer or GI bleeding, talk with your doctor before using these medicines.] Follow Up with your doctor or this facility if your injury does not start to improve within the next THREE days. [NOTE: If X-rays were taken, they will be reviewed by a radiologist. You will be notified of any new findings that may affect your care.] Get Prompt Medical Attention if any of the following occur: -- Pain or swelling increases -- Redness, warmth or drainage -- Hand or fingers becomes cold, blue, numb or tingly Fractured Nose [With X-Ray] You have a fracture (break) in the nasal bone. It may be a minor hairline crack or a major break with the parts pushed out of place. A fractured nose causes pain, swelling and nasal stuffiness. Sometimes, there is also bleeding from the nose. By the next day, it is common to get bruising around the eyes from a broken nose. A minor fracture will heal in about 3-4 weeks with no additional treatment needed. A major break, causing a change in shape of the nose, will require straightening of the nasal bones (reduction) by an ENT doctor (nose specialist). Some fractures may need a reduction as soon as possible (such as those with continued bleeding). Otherwise, it is best to wait a few days until the swelling has gone down. This gives a better result since the doctor can easily see when the nose is back in the right position. Home Care: Apply an ice pack (ice cubes in a plastic bag, wrapped in a towel) over the injured area for 20 minutes every 1-2 hours the first day. Continue with ice packs 3-4 times a day for the next two days, then as needed for the relief of pain and swelling. Notify your doctor if you are taking aspirin or blood thinners (coumadin). These will promote nose bleeding. Your dose may need to be adjusted. You may use acetaminophen (Tylenol) or ibuprofen (Motrin, Advil) to control pain, unless another medicine was prescribed. [NOTE: If you have chronic liver or kidney disease or ever had a stomach ulcer or GI bleeding, talk with your doctor before using these medicines.] Avoid alcohol and hot liquids for the next two days. Alcohol or hot liquids in your mouth can dilate blood vessels in your nose and cause bleeding. Avoid blowing your nose for the first two days. Then, do so gently so you don't cause bleeding. Do not play contact sports in the next six weeks unless you can protect your nose from re-injury. Special custom-fitted plastic face masks are available for this purpose. Follow Up with your doctor or as advised. If your nose appears crooked or if you continue to have difficulty breathing through one or both sides of your nose after the swelling goes down, call the ENT doctor (nose specialist) for an appointment. If you have trouble getting an ENT appointment, call your regular doctor or return here. If the bones are out of place, a reduction should be done between 6-10 days after the injury in adults; and between 3-7 days after injury in children. After that time, the bones become more difficult to move back into position. [NOTE: Any X-rays taken will be reviewed by a radiologist. You will be notified if there are new findings that may affect your care.] Get Prompt Medical Attention if any of the following occur: Bleeding from the nose that is not controlled by pinching the nostrils together for 15 minutes Increasing facial swelling, pain or redness Fever of 100.4F (38C) or higher, or as directed by your healthcare provider Unable to breathe from both sides of the nose after swelling goes down Sinus pain Repeated vomiting Severe or worsening headache or dizziness Unusual drowsiness, or unable to awaken as usual Confusion or change in behavior or speech Convulsion (seizure) Head Injury With Wake-Up (Adult) You have had a head injury. It does not appear serious at this time. Symptoms of a more serious problem (concussion, bruising, or bleeding in the brain) may appear later. Therefore, watch for the WARNING SIGNS listed below. Home Care: During the next 24 hours someone must stay with you. This person should wake you every 2 hours to check for the signs below. If you have swelling of the face or scalp, apply an ice pack (ice cubes in a plastic bag, wrapped in a towel) for 20 minutes every 1-2 hours until the swelling starts to go down. Do not use aspirin or ibuprofen (Motrin, Advil) after a head injury. You may use acetaminophen (Tylenol) to control pain, unless another pain medicine was prescribed. [NOTE: If you have chronic liver or kidney disease or ever had a stomach ulcer or GI bleeding, talk with your doctor before using these medicines.] For the next 24 hours: Do not take alcohol, sedatives, or medicines that make you sleepy. Do not drive or operate machinery. Avoid strenuous activities. No lifting or straining. If you have had any symptoms of a concussion today (nausea, vomiting, dizziness, confusion, headache, memory loss, or you were knocked out), do not return to sports or any activity that could result in another head injury until all symptoms are gone and you have been cleared by your doctor. A second head injury before fully recovering from the first one can lead to serious brain injury. Follow Up with your doctor if symptoms are not improving after 24 hours, or as directed. [NOTE: A radiologist will review any X-rays or CT scans that were taken. We will notify you of any new findings that may affect your care.] Get Prompt Medical Attention if any of the following WARNING SIGNS occur: Repeated vomiting Severe or worsening headache or dizziness Unusual drowsiness, or unable to awaken as usual Confusion or change in behavior or speech, memory loss, blurred vision Convulsion (seizure) Increasing scalp or face swelling Redness, warmth or pus from the swollen area Fluid drainage or bleeding from the nose or ears Head Injury With Wake-Up (Adult) You have had a head injury. It does not appear serious at this time. Symptoms of a more serious problem (concussion, bruising, or bleeding in the brain) may appear later. Therefore, watch for the WARNING SIGNS listed below. Home Care: During the next 24 hours someone must stay with you. This person should wake you every 2 hours to check for the signs below. If you have swelling of the face or scalp, apply an ice pack (ice cubes in a plastic bag, wrapped in a towel) for 20 minutes every 1-2 hours until the swelling starts to go down. Do not use aspirin or ibuprofen (Motrin, Advil) after a head injury. You may use acetaminophen (Tylenol) to control pain, unless another pain medicine was prescribed. [NOTE: If you have chronic liver or kidney disease or ever had a stomach ulcer or GI bleeding, talk with your doctor before using these medicines.] For the next 24 hours: Do not take alcohol, sedatives, or medicines that make you sleepy. Do not drive or operate machinery. Avoid strenuous activities. No lifting or straining. If you have had any symptoms of a concussion today (nausea, vomiting, dizziness, confusion, headache, memory loss, or you were knocked out), do not return to sports or any activity that could result in another head injury until all symptoms are gone and you have been cleared by your doctor. A second head injury before fully recovering from the first one can lead to serious brain injury. Follow Up with your doctor if symptoms are not improving after 24 hours, or as directed. [NOTE: A radiologist will review any X-rays or CT scans that were taken. We will notify you of any new findings that may affect your care.] Get Prompt Medical Attention if any of the following WARNING SIGNS occur: Repeated vomiting Severe or worsening headache or dizziness Unusual drowsiness, or unable to awaken as usual Confusion or change in behavior or speech, memory loss, blurred vision Convulsion (seizure) Increasing scalp or face swelling Redness, warmth or pus from the swollen area Fluid drainage or bleeding from the nose or ears Dementia & Caregiver Support (Advice For The Caregiver) Dementia is a chronic condition that affects the brain. It causes a gradual loss of memory. There may be trouble recognizing familiar people and places, or knowing what day it is. Memory, judgment and decision-making may also be affected. In severe cases there may be limited or no response to verbal commands. The most common form of dementia is Alzheimers disease. The cause of Alzheimer's disease is not fully understood. So far there is no cure. However, there are medicines to slow down the progress of the disease and to treat some of the symptoms. Some of the less common causes for dementia are curable. So, it is important to have a complete medical evaluation to look for conditions that can be treated. Home Care: A responsible person must be with the person who has advanced dementia at all times. He/she should not be left alone or unsupervised. In the case of advanced advanced dementia, keep medicines (prescription and idux-sse-vyjyvne) in a secure place, under the caregivers control. A person with advanced dementia should not be allowed to take their own medicines. This needs to be supervised by the caregiver. Ways to help a person with dementia: Activities:Keep to a daily routine. Changes in environment and schedules can be a source of stress for someone with dementia. Make a time schedule for common tasks of living such as bathing, dressing, taking medicines, meal times, going for walks, shopping, naps, and bed time. Communication:When speaking to a person with dementia, talk slowly and clearly. Use a gentle tone of voice. Choose short, simple words and sentences. Ask one question at a time. Do not interrupt, criticize or argue. Be calm and supportive. Use friendly facial expressions. Use pointing and touching to help communicate. If there has been loss of long-term memory, do not ask questions about past events. Instead, talk about what is happening now. Behavioral tips:Use lists, signs, family photos, clocks and calendars as memory aids. Label cabinets and drawers. Try to distract, not confront, the patient. When he/she becomes frustrated or upset, direct his/her attention to eating or some other activity of interest. Medical-Legal tips: Talk to your doctor and/or medical officer about getting a Power of Agricultural Research Engineer for health care and for financial decisions. It is best to do this while the person can still sign legal documents and make his/her own legal decisions. Otherwise a court order will be needed. Support For The Caregiver: As the caregiver, you will need a lot of support for yourself. Caring for a person with dementia is a full-time job. It can drain your emotions and lead to frustration and anger towards the one you love. It is common to have feelings of grief over losing the familiar relationship that you once knew. As a caregiver to someone with dementia, you are at higher risk for depression, anxiety and stress reactions. Here are some tips to help you cope with being a caregiver: Learn about dementia and Alzheimers disease so you know what to expect. Find out about the resources in your community, including adult day care programs. Ask our staff for a referral to a sexual assault social worker, if needed. Take care of yourself with a good diet, exercise and plenty of rest. Ask for help. Share some of the caretaking duties with family and friends. Make personal time for yourself. This is essential! Consider hiring an in-home sitter. Seek counseling and/or join a caregivers support group. Don't isolate yourself, or try to cope with this alone. In a support group, you can learn from others in a similar situation. Contact the Alzheimers Association ( ) or visit their website (www.alz.org) for more information. Follow-Up with the patients doctor or as advised by our staff. Get Prompt Medical Attention if any of the following occur: Frequent falling Refusal to eat or drink Violent behavior or behavior becomes too difficult to manage at home Increased drowsiness, or failure to respond normally Increasing headache, nausea or repeated vomiting Numbness or weakness of the face, one arm or one leg Slurred speech, trouble speaking, walking or seeing Fainting spell, dizziness or seizure Unexplained fever over 100.4 F (38.0 C) oral Diabetes with High Blood Sugar You have been treated for high blood sugar (hyperglycemia). This may be becauseof an infection or other illness;eating too many sweets or starches ; not taking enough insulin. Home care High blood sugar may cause symptoms that you can learn to recognize, such as these: If you feel like your blood sugar may be too high, measure it using a blood or urine test. If it is above your usual range, use the "sliding scale"rRegular insulin dose your doctor gave you to correct this. If no "sliding scale" orders were given, contact your doctor for further advice. If your blood sugar is over 300, and you can't reach your doctor, go to the hospital emergency room. Monitor and write down your blood sugars - and insulin dose, if you take insulin - atleast twice a day. Do this before breakfast and before dinner. Do this for the next 3 to 5 days. Follow-up care Follow up with your health care provderduring the next week to review your blood sugar records. You will find out if you need to adjust your dose of insulin or other medicine for blood sugar. When to seek medical care Get prompt medical attention if either of these occur: High blood sugar.Symptoms are frequent urination, feeling dizzy, thirst, headache, nausea or vomiting, abdominal pain, and drowsiness or loss of consciousness. Low blood sugar. Symptoms are fatigue, headache, shakes, excess sweating, hunger, anxiety, reduced vision, drowsiness, weakness, confusion or loss of consciousness, and seizure. Renal Insufficiency The role of the kidneys is to remove waste products and excess water from the body. When the kidneys do not function normally, waste products build up in the blood.The early stage of this process is called renal insufficiency . If renal insufficiency worsens it can lead to chronic renal failure. This allows excess water, waste and toxic substances to build up in the body. This can become a threat to life, requiring dialysis or a kidney transplant to stay alive. Diabetes is the leading causes of renal insufficiency. Other causes include high blood pressure, hardening of the arteries, lupus, inflammation of the blood vessels (vasculitis), prior viral and bacterial infections, and others. Certain oshp-qvf-nzawcgr pain medicines can cause renal failure when taken often over a long period of time. These include aspirin, ibuprofen (Advil, Motrin) and related anti-inflammatory medicines. Home Care: If you have diabetes, talk to your doctor about the quality of your blood sugar control.Ask about any changes needed to your diet or medicines. If you have high blood pressure: Take your blood pressure medicine. Take up a regular exercise program that you enjoy.Check with your doctor to be sure your planned exercise program is right for you. Reduce your salt (sodium) intake.Your doctor can tell you how much salt per day is safe for you. If you are overweight, talk to your doctor about a weight loss plan. If you smoke, you must quit.Smoking worsens kidney disease.Talk to your doctor about ways to help you quit.For more information, visit the following links: www.smokefree.gov/pubs/clearing_the_air.pdf www.smokefree.gov www.[employer].com Talk to your doctor about any dietary restrictions advised. In general, it is advisable to limit protein, salt, potassium and phosphorus.Avoid excess fluids. Do not add salt at the table and avoid salty foods.A calcium supplement may be prescribed to protect your bones from osteoporosis. Avoid the following over the counter medicines, or consult your doctor before using: Aspirin and anti-inflammatory drugs such as ibuprofen (Advil, Motrin), naprosyn (Aleve); [Short term use of acetaminophen (Tylenol) for fever or pain is okay.] Laxatives and antacids containing magnesium or aluminum (Mylanta, Maalox) Avoid Fleet or phosphosoda enemas which contain phosphorus Certain stomach acid-blocking medicine such as cimetidine (Tagamet), ranitidine (Zantac) Decongestants containing pseudoephedrine (such as some forms of Sudafed or Actifed) Herbal supplements Follow Up with your doctor or as advised by our staff. Contact one of the following for more information. [place] [employer](868) [phone] www.aakp.org National Kid[employer] Foundation www.kidney.org Return Promptly or contact your doctor if any of the following occurs: Nausea or vomiting Severe weakness, dizziness, fainting, drowsiness or confusion Chest pain or shortness of breath Unexpected weight gain or swelling in the legs, ankles or around the eyes Heart beating fast, slow or irregularly Decrease or loss in urine output Rhabdomyolysis Rhabdomyolysis (RM) is the breakdown of muscle tissue. When this occurs there is a release of toxic substances into the blood stream. The most common cause for this condition is injury to the muscle from trauma. The trauma may be due to a blunt injury (car and bike accidents, falls), electrical shock or hill. Lying in one position for a long time (for example, unconscious from a drug or alcohol overdose), strenuous exertion (such as running a marathon), seizures and use of certain prescribed and recreational drugs can also cause RM. Severe RM can be fatal. It can cause fatal changes in body function including: Kidney failure Abnormalheart rhythm that can be fatal Excess bleeding due to changes in the bloods ability to form a clot Severe RM is a medical emergency and is treated in the hospital with large amounts of IV fluids to flush the toxins out of the body. Mild cases of RM may be treated in the emergency department and followed closely with a repeat exam and blood tests the next day. Home Care Rest for the next 24 hours. Avoid any strenuous activity. Drink extra fluids to stay well hydrated and to continue flushing toxins out of your system. Unless told otherwise, drink 3 quarts of clear fluids over the next 24 hours. You may use acetaminophen (Tylenol) or ibuprofen (Motrin, Advil) to control pain, unless another medicine was prescribed. [NOTE: If you have chronic liver or kidney disease or ever had a stomach ulcer or GI bleeding, talk with your doctor before using these medicines.] Follow Up with this facility, your doctor or as advised by our staff. Get Prompt Medical Attention if any of the following occur: Palpitations (rapid or irregular heartbeat) Dizziness, weakness or fainting Tea- or cola-colored urine or decreased urination Swelling, pain or numbness in the arm or leg muscles You have been given the following additional information: Fall, Uncertain Cause Abrasion Finger Contusion Fracture, Nose (With X-Ray) HEAD INJURY with Wake-Up (Adult) HEAD INJURY with Wake-Up (Adult) Dementia, Any Type Diabetic Hyperglycemia Renal Insufficiency Rhabdomyolysis (Electronically signed by Saji Palma MD 04/28/2016 9:26)
--- NOTE | 2016-04-28 09:26 | ED MED RECONCILIATION SUMMARY ---
Patient: ABBIE CANELA Medication Reconciliation Report [facility] VisitID: [id number] [address] [place] [address] 71y, F Registration Date/Time: 04/27/2016 Weight: 70.3 kg Height/Length: 66 in. BMI: 25.0 ALLERGIES: Sulfa Antibiotics The patient's Home Medications are listed below: CONTINUE TAKING THE FOLLOWING MEDICATIONS: Antacid Oral Asa 81mg day Atorvastatin Calcium Oral 80 mg, daily THE FOLLOWING MEDICATIONS NEED TO BE RECONCILED: Calcitriol 0.25mg day Ferrous Sulfate Oral Furosemide Oral 40 mg, daily Gabapentin Oral Levothyroxine Sodium Oral 112 mcg, daily Lisinopril Oral 20 mg, daily Lotrimin cream 25 powder prn Nitrofurantoin Monohyd Macro Oral (100 mg) Nortriptyline HCl Oral 10 mg, at bedtime Nystatin External Omeprazole Oral 20 mg, daily Oxybutynin Chloride Oral 5 mg, daily OxyCODONE HCl Oral 10 mg, 4x a day Oyster shell 500mg/200mg day Polyerhylene glycol 3350 powder, day Spironolactone Oral 25 mg, daily Venlafaxine HCl ER Oral 225mg day Vit b - 12 1000mg day Vit d-3 2000 mg day Warfarin Sodium Oral 4 mg s/s//// 5mg on// The source(s) of the original Home Medication information: Not obtained. The following Medications were given to the patient in the Emergency Department: IV NS IV Fluids bolus 500 mL over 1 hour(s), then 100 mL/hr, administered: 04/27/2016 6:59:00 AM Insulin REG [IVP] IVP 6 unit, administered: 04/27/2016 8:49:00 AM The following Medications were prescribed to the patient: None.
--- NOTE | 2016-04-28 09:26 | ED MAR SUMMARY ---
..... Medication Administration Record [facility] [address] [place] [address] Patient: ABBIE CANELA Visit ID: [id number] 71y, F Weight: 70.3 kg Height/Length: 66 in BMI: 25 ALLERGIES: Sulfa Antibiotics Start 06:59 04/27/2016 Eris Bolivar R.N., Stop 09:34 04/27/2016 Bala Hatfield R.N. Medication Administered: IV NS (SALINE), Dose: IV Fluids over 4 hour(s), Rate: 100 mL/hr, Bolus: 500 mL over 1 hour(s), Dispensed: 500 mL bag, Site: #1 left AC. Medication Ordered: IV NS : initial bolus 500 mL (1000 mL/hr), then 100 mL/hr for 4h (NOW); Urgent. Given 08:49 04/27/2016 Bala Hatfield R.N. Medication Administered: INSULIN REG [IVP], Dose: 6 unit IVP, Site: #1 left AC. Medication Ordered: Insulin Reg IV 6 units (HIGH ALERT MEDICATION, NOW).
== END 2016-04-27 09:43 | disposition home or self-care (01) ==
LOC: ED SRH 05:25
DX: S09.90XA Unspecified injury of head, initial encounter (principal); S02.2XXA Fracture of nasal bones, initial encounter for closed fracture; S60.041A Contusion of right ring finger without damage to nail, initial encounter; S80.212A Abrasion, left knee, initial encounter; W06.XXXA Fall from bed, initial encounter; Y93.9 Activity, unspecified; Y92.129 Unspecified place in nursing home as the place of occurrence of the external cause; Y99.9 Unspecified external cause status; E11.65 Type 2 diabetes mellitus with hyperglycemia; F03.90 Unspecified dementia, unspecified severity, without behavioral disturbance, psychotic disturbance, mood disturbance, and anxiety; N18.9 Chronic kidney disease, unspecified

== ENCOUNTER 2016-05-30 12:52 | Emergency (ER) | payer OTHER ==
--- NOTE | 2016-05-30 15:56 | ED CLINICAL REPORT ---
Clinical Report - Physicians/Mid Levels [facility] [address] [place] [address] 05/30/2016 12:53 Patient: ABBIE CANELA Time Seen: 1318; initial patient contact, initial documentation, patient care assumed. Arrived- By ambulance. Historian- daughter. HISTORY OF PRESENT ILLNESS Chief Complaint: ( bleeding from mouth). At its maximum, severity described as severe. When seen in the E.D., it was gone. Modifying factors. Not worsened by anything. Not relieved by anything. This started today and is now gone. It was abrupt in onset. The patient has had weakness. (pt suffers from bleeding disorder, and has frequent nose bleeds, this time there was bleeding coming from the mouth). Similar symptoms previously: Frequently, milder. Recent medical care: Not recently seen/assessed. REVIEW OF SYSTEMS No fever, difficulty breathing, chest pain, abdominal pain or vomiting. No diarrhea, black stools, bloody stools or abnormal bleeding. All systems otherwise negative, except as recorded above. PAST HISTORY See nurses notes. PROBLEMS: Facial Fracture. Rhabdomyolysis. Dementia. Urinary Incontinence. Renal Insufficiency. Hypotension. Renal Failure. GI Bleeding. Thyroid Disease. Hypertension. Congestive Heart Failure. Diabetes Mellitus. CVA - Cerebrovascular Accident. UTI - Urinary Tract Infection. Fall. Hereditary hemorrhagic telangiectasia. Anemia. Hyperlipidemia. Lower Extremity Pain. Arthritis. Sleep Apnea. PE. Gerd. Hypercholesterolemia. Anxiety. Anemia . Amp lt leg bka . DVT - Deep Venous Thrombosis. --13:16 Holli Hardwick RChristieN. ADDITIONAL SURGERIES: Amputation Below Knee. Cataract Surgery. Cholecystectomy. Hysterectomy. Knee replacements b/l. Shoulder replacement right. Total Hip Replacement. --13:16 Holli Hardwick R.N. SOCIAL HISTORY Former smoker. No alcohol use or drug use. No recent travel. Is a local resident. Resides in a halfway. FAMILY HISTORY Negative. ADDITIONAL NOTES The nursing notes have been reviewed with agreement regarding the chief complaint, HPI, ROS, PMH and patient medications and allergies. PHYSICAL EXAM Vital Signs: 05/30/2016 12:41 BP: 193/88. HR: 74. RR: 14. O2 saturation: 95%. Temp: 98.2 F. Pain level now: 0/10. Have been reviewed as abnormal and appear to be correct. Hypertensive. Heart rate normal. Respiratory rate normal. Temperature normal. Oxygen saturation normal. Appearance: Alert. No acute distress. Eyes: Pupils equal, round and reactive to light. Eyes normal inspection. ENT: Ears normal. Nose normal. Pharynx normal. Neck: Normal inspection. Neck supple. CVS: Normal heart rate and rhythm. Heart sounds normal. Pulses normal. Respiratory: No respiratory distress. Breath sounds abnormal. Inspiratory wheezes in the right upper lung posteriorly. Chest nontender. Abdomen: No visible injury. Soft and nontender. Moderately obese. Back: Normal inspection. Skin: Skin warm and dry. Normal skin color. Rash present. Normal skin turgor. Mild, well-demarcated, erythematous, petechial skin rash located on the left leg and left foot (skin ulcer with intact bandage to L lateral knee area). Extremities: Extremities exhibit normal ROM. No lower extremity edema. (Rbka). Neuro: Oriented X 3. No motor deficit. No sensory deficit. LABS, X-RAYS, AND EKG Laboratory Tests: CBC w Diff: (BETHANY: 05/30/2016 13:40) ( MsgRcvd 05/30/2016 14:25) Final results Test Result Flag Units (Reference) WHITE BLOOD COUNT 9.8 K/uL (4.5-11.5) RED BLOOD COUNT 3.46 L M/uL (4.00-5.20) HEMOGLOBIN 10.9 L gm/dL (12.0-16.0) HEMATOCRIT 33.6 L % (36.0-46.0) MEAN CELL VOLUME 97 fL (80-100) MEAN CORPUSCULAR HGB 31 pg (26-34) MEAN CORPUSCULAR HGB CONC 32 g/dL (31-37) RED CELL DISTRIBUTION WIDTH 15.9 H % (11.6-14.8) PLATELET COUNT 265 K/uL (150-400) NEUTROPHIL % 71.1 % (50-75) LYMPH % 8.4 L % (25-40) MONO % 4.1 % (3-14) EOSINOPHIL % 16.3 H % (0-4) BASOPHIL % 0.1 % (0-2) PT with INR: (BETHANY: 05/30/2016 13:40) ( MsgRcvd 05/30/2016 15:18) Final results Test Result Flag Units (Reference) APTT 98 H SECONDS (24-34) INR 9.1 *H (0.8-1.2) CRITICAL RESULTS CALLEDCalled to RICO RODRIGUEZ,ER 05/30/16 1518Were 2 patient identifiers used? YWas the result read back? YLow Intensity Therapy: INR 1.5-2.0 PT range 18.5-23.1Mod.Intensity Therapy: INR 2.0-3.0 PT range 23.1-31.5High Intensity Therapy: INR 2.5-3.5 PT range 27.4-35.5High Intensity Therapy 2: INR 3.0-4.0 PT range 31.5-39.3 CMP: (BETHANY: 05/30/2016 13:40) ( MsgRcvd 05/30/2016 14:33) Final results Test Result Flag Units (Reference) GLUCOSE 94 mg/dL (70-110) BUN 31 H mg/dL (7-18) CREATININE 1.8 H mg/dL (0.6-1.3) Estimated GFR 29.31 mL/min Estimated GFR- 35.53 mL/min Note: Persistent reduction over 3 months in eGFR<60 mL/min/1.73 m2 defines CKD. Patients with eGFR values>=60 mL/min/1.73 m2 may also have CKD if evidence ofpersistent proteinuria. Additional information may be foundat www.kidney.org. SODIUM 147 H mmol/L (136-145) POTASSIUM 3.8 mmol/L (3.5-5.1) CHLORIDE 108 H mmol/L (98-107) CARBON DIOXIDE 31 mmol/L (21-32) CALCIUM 10.4 H mg/dL (8.5-10.1) TOTAL PROTEIN 7.6 g/dL (6.4-8.2) ALBUMIN 2.9 L g/dL (3.3-5.0) BILIRUBIN, TOTAL 0.2 mg/dL (0.0-1.0) ALKALINE PHOSPHATASE 104 U/L (46-116) AST (SGOT) 18 U/L (15-37) ALT (SGPT) 14 U/L (12-78) . PROGRESS AND PROCEDURES Course of Care: old er records and labs reviewed labs from 04/27 Bun 28 Creat 1.8 INR 2.5 aptt [address] Lefty raymond pt's case and lab results, tx plan, agreed with my plan to give Vit K, withhold her coumadin and f/u within 24-48 hrs family needed ems transport back to [facility]. Patient and family counseled in person regarding the patient's stable condition, test results and diagnosis. Differential Diagnosis: Other possible considerations: anemia, gi bleed, epistaxis, abnormal labs. Above considerations are based on history, physical exam, reassessment and laboratory data. Differential diagnosis was discussed with patient and patient's family. Disposition: Discharged home in good and improved condition (15:56). Condition: good and stable. CLINICAL IMPRESSION Abnormal tests: (Elevated PTT and InR). INSTRUCTIONS (withhold Coumadin til follow up and repeat blood work is finished, as discussed). Warnings: Further evaluation is necessary in order to recheck abnormal lab, obtain test results and conduct further tests. It is very important to follow up with a physician. GENERAL WARNINGS: Return or contact your physician immediately if your condition worsens or changes unexpectedly, if not improving as expected, or if other problems arise. Specifically return if problem worsens. Follow-up: Follow up with your doctor tomorrow. Summary of care provided to patient and family. Understanding of the discharge instructions verbalized by parent and family. (Electronically signed by Denisa Hu A.R.N.P. 05/30/2016 18:18)
--- NOTE | 2016-05-30 15:56 | ED NURSING NOTES ---
Clinical Report - Nurses [facility] [address] [place] [address] 05/30/2016 12:53 [id number] Triage time 1240 PM. Acuity: LEVEL 3. Chief Complaint: (blleding). Alert. No acute distress. SEPSIS SCREEN: Sepsis Screen. Negative (no infection suspected/documented). EMILEE COMA SCORE: [place] Coma Scale: 15- eyes open spontaneously (4); best verbal response- oriented x 4 (5); best motor response- obeys commands (6). --13:30 Holli Hardwick R.N. 12:41 05/30/16. BP: 193/88 (regular adult cuff) taken on the left arm, via an automated monitor, while lying. HR: 74. RR: 14. O2 saturation: 95% on room air. Temp: 98.2 F (oral). Pain level now: 0/10. --13:30 Holli Hardwick R.N. Weight: 87.5 kg estimated. Height/Length: 66 inches Per Patient. BMI: 31.2. --13:12 Holli Hardwick R.N. Medications Warfarin Sodium Oral 2.5mg s/s//// 5mg onm//. --13:14 Holli Hardwick R.N. Antacid Oral. Asa 81mg day. Atorvastatin Calcium Oral 80 mg, daily. Calcitriol 0.25mg day. Ferrous Sulfate Oral. Furosemide Oral 40 mg, daily. Gabapentin Oral. Levothyroxine Sodium Oral 112 mcg, daily. Lisinopril Oral 20 mg, daily. Lotrimin cream 25 powder prn . Nitrofurantoin Monohyd Macro Oral (Capsule 100 mg). Nortriptyline HCl Oral 10 mg, at bedtime. Nystatin External. Omeprazole Oral 20 mg, daily. Oxybutynin Chloride Oral 5 mg, daily. OxyCODONE HCl Oral 10 mg, 4x a day as needed. Oyster shell 500mg/200mg day. Polyerhylene glycol 3350 powder, day. Spironolactone Oral 25 mg, daily. Venlafaxine HCl ER Oral 225mg day. Vit b - 12 1000mg day. Vit d-3 2000 mg day . --13:14 Holli Hardwick R.N. Lantus Subcutaneous. --14:23 Holli Hardwick R.N. The following entry was struck and corrected by Holli Hardwick R.N., 14:00 (05/30/16) Reason for correction - other(correction). <<STRICKEN ENTRY-- Warfarin Sodium Oral 4 mg s/s//// 5mg onm//. --13:14 Holli Hardwick R.N. --END STRIKE>>. Allergies Sulfa Antibiotics. --13:14 Holli Hardwick R.N. Medication/allergy information source: the patient's family and imported external medical record. --13:30 Holli Hardwick R.N. History Arrived by EMS. Historian: patient and family. Primary physician (Dr. Shayy Calderon at [facility]). ( Pt was brought from [facility], as per EMS pt had 2 bleeding episodes, unsure the source, either nose or mouth. Pt's daughter states that pt has had multiple epistaxis, has had clots from her mouth but never copious amount from her mouth (due to her bleeding disorder-hereditary hemorrhagic telangiectasia . Pt's daughter states that she has been weak, not eating or drinking much.). This started today. This is a new problem. Symptoms gone now. She has had a cough and skin rash located on the left leg. ( Also pt has a rash like on her left leg, as per daughter its new.). Denies muscle aches. 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 See EMS report. PAST MEDICAL HX: Immunizations: up-to-date. The patient has had a hysterectomy. SOCIAL HX: Former smoker, end date 2013. No alcohol use or drug use. No infectious disease exposure. ABUSE ASSESSMENT: No report of abuse. SELF HARM ASSESSMENT: A self harm assessment was performed. The patient answered "no" to the question "Do you have thoughts of harming or killing yourself?" and "Have you recently had thoughts about harming or killing others?". FALL RISK ASSESSMENT: Fall risk assessment completed. No fall risk identified. NUTRITIONAL RISK ASSESSMENT: The nutritional risk assessment revealed no deficiencies. FUNCTIONAL ASSESSMENT: Functional assessment: no impairments noted. LEARNING NEEDS ASSESSMENT: The learning needs assessment revealed no barriers. SKIN INTEGRITY ASSESSMENT: Skin integrity risk assessment completed. No skin integrity risk identified. --13:30 Holli Hardwick R.N. PROBLEMS: Facial Fracture. Rhabdomyolysis. Dementia. Urinary Incontinence. Renal Insufficiency. Hypotension. Renal Failure. GI Bleeding. Thyroid Disease. Hypertension. Congestive Heart Failure. Diabetes Mellitus. CVA - Cerebrovascular Accident. UTI - Urinary Tract Infection. Fall. Hereditary hemorrhagic telangiectasia. Anemia. Hyperlipidemia. Lower Extremity Pain. Arthritis. Sleep Apnea. PE. Gerd. Hypercholesterolemia. Anxiety. Anemia . Amp lt leg bka . DVT - Deep Venous Thrombosis. --13:16 Holli Hardwick R.N. ADDITIONAL SURGERIES: Amputation Below Knee. Cataract Surgery. Cholecystectomy. Hysterectomy. Knee replacements b/l. Shoulder replacement right. Total Hip Replacement. --13:16 Holli Hardwick R.N. Interventions ID band on patient. --13:30 Holli Hardwick R.N. PHYSICAL ASSESSMENT To room via stretcher. GENERAL / NEURO / PSYCH: Alert. The patient is disoriented to person and place. She has had weakness. Pupillary exam: Right pupil 2mm, round and briskly reactive to light directly. Left pupil: 2mm, round and briskly reactive to light directly. HEENT: Mucous membranes are pink. RESPIRATORY: Respirations not labored. Decreased breath sounds in the bases bilaterally. Wheezes in the right lung base posteriorly and mid-lung posteriorly. CVS: Capillary refill less than 2 seconds. Pulses within normal limits. GI / : Abdominal distention. Abdomen soft and nontender and normal bowel sounds. No abdominal tenderness. SKIN: Skin intact. Skin is warm and dry. Normal skin turgor. Poor skin turgor. Skin breakdown noted on left knee and left calf; pressure sore with damage down to fascia (Stage III) noted on left knee and left calf; present on arrival. --13:34 Holli Hardwick R.N. NURSING PROGRESS NOTES 13:34 05/30/16. BP: 166/68 (regular adult cuff) taken on the right arm, via an automated monitor, while lying. HR: 75. RR: 14. O2 saturation: 94% on room air. Pain level now: 06/14. --13:35 Holli Hardwick R.N. The initial plan of care for this patient has been created This plan of care was discussed with the patient. Pulse oximeter and NIBP monitor placed on patient. Patient gowned. Warming measures: blanket applied. Reassurance given. GENERAL / NEURO / PSYCH: Denies headache or anxiety. RESPIRATORY: Denies difficulty breathing. CVS: Denies chest pain. Two patient identifiers checked. Call light placed in reach. Side rails up x 2. Bed placed in lowest position. Brakes of bed on. Patient ready for evaluation- SCALLOP CUTTER MACHINE notified. --13:35 Holli Hardwick R.N. 13:48 05/30/2016 Site #1 started via IV in the left antecubital space with an 20g angiocath; one attempt. Blood drawn: rainbow set. Labeled in the presence of the patient and sent to the lab. --13:53 Holli Hardwick R.N. 13:54 05/30/2016 Started bag #1 1000 mL IV Fluids IV NS (Saline); at 999 mL/hr over 1 hour(s) via site #1 via IV pump. Allergies verified and confirmed 5 rights. IV patency established. IV site checked: no pain, redness, or swelling. IV flushed thoroughly pre- and post-medication administration. --13:54 Holli Hardwick R.N. 13:45 05/30/16. BP: 166/77. HR: 78. RR: 14. O2 saturation: 94% on room air. Pain level now: 04/14. --13:56 Holli Hardwick R.N. Reassurance given. The patient is calm. Overall patient status is the same- she states feels the same. GENERAL / NEURO / PSYCH: Denies headache. RESPIRATORY: Denies difficulty breathing. No respiratory distress present. Expiratory wheezes in the right mid-lung posteriorly. CVS: Denies chest pain. Call light placed in reach. --13:56 Holli Hardwick R.N. 14:37 05/30/16. BP: 179/92 (regular adult cuff) taken on the right arm, via an automated monitor, while lying. HR: 79. RR: 14. O2 saturation: 100% on nasal cannula at 2 liters/minute. Temp: 97.7 F (oral). Pain level now: 04/14. --14:39 Holli Hardwick R.N. Reassurance given. The patient is calm. Overall patient status is the same- she states feels the same. GENERAL / NEURO / PSYCH: Denies headache or anxiety. RESPIRATORY: Denies difficulty breathing. No respiratory distress present. CVS: Denies chest pain. GI / : Denies nausea. Call light placed in reach. --14:39 Holli Hardwick R.N. ( No further episodes of bleeding noted since pt's arrival to ED). --15:07 Holli Hardwick R.N. Care transferred and report given (Rogerio Riley). --15:21 Holli Hardwick R.N. 15:00 05/30/2016 IV Fluids IV NS Discontinued: bag #1 infused. Total amount infused: 1000 mL. IV patency established. IV site checked: no pain, redness, or swelling. IV flushed thoroughly. --20:47 Osvaldo Browne R.N. 16:23 05/30/2016 Vit K (Vitamin K1) IM 10 mg given. Given in the right ventral gluteus. Allergies verified and confirmed 5 rights. --16:28 Osvaldo Browne R.N. DISPOSITION / DISCHARGE 17:02 05/30/2016 Site #1 removed upon discharge. Bandaid applied. --17:02 Joleen Samaniego R.N. 17:07 05/30/16. Condition at departure: improved. Learning barriers present. Teaching performed with the patient and family. Discharge instructions provided and reviewed with the patient and family. Patient and family verbalized understanding. Written instructions provided in Samoan. The patient was discharged by the physician. She was [facility] to the [facility] and accompanied by family. She left the Emergency Department via ambulance and on a stretcher. Driving (Ambulance). --17:07 Joleen Samaniego R.N. 17:05 05/30/16. BP: 170/78 (regular adult cuff) taken on the right arm, while sitting. HR: 80. RR: 18. O2 saturation: 98% on nasal cannula at 2 liters/minute. Temp: 97.3 F (oral). Pain level now: 06/14. --17:07 Joleen Samaniego R.N. 17:08 05/30/16. ( Patient will wait in room with daughter for ambulance to get her and take her back to [facility]). --17:08 Joleen Samaniego R.N. 17:45 05/30/16. BP: 139/97. HR: 82. RR: 16. O2 saturation: 96% on room air. Temp: 98.8 F (oral). Pain level now: 03/17. Additional comments: Generalized aches and pain. --18:35 Osvaldo Browne R.N. Departure time: 1750. --18:35 Osvaldo Browne R.N. Locked/Released at 05/30/2016 20:49 by Osvaldo Browne R.N.
--- NOTE | 2016-05-30 15:56 | ED NURSING NOTES ---
Clinical Report - Nurses [facility] [address] [place] [address] 05/30/2016 12:53 [id number] Triage time 1240 PM. Acuity: LEVEL 3. Chief Complaint: (blleding). Alert. No acute distress. SEPSIS SCREEN: Sepsis Screen. Negative (no infection suspected/documented). EMILEE COMA SCORE: [place] Com[place] Scale: 15- eyes open spontaneously (4); best verbal response- oriented x 4 (5); best motor response- obeys commands (6). --13:30 Holli Hardwick R.N. 12:41 05/30/16. BP: 193/88 (regular adult cuff) taken on the left arm, via an automated monitor, while lying. HR: 74. RR: 14. O2 saturation: 95% on room air. Temp: 98.2 F (oral). Pain level now: 0/10. --13:30 Holli Hardwick R.N. Weight: 87.5 kg estimated. Height/Length: 66 inches Per Patient. BMI: 31.2. --13:12 Holli Hardwick R.N. Medications Warfarin Sodium Oral 2.5mg s/s//// 5mg onm//. --13:14 Holli Hardwick R.N. Antacid Oral. Asa 81mg day. Atorvastatin Calcium Oral 80 mg, daily. Calcitriol 0.25mg day. Ferrous Sulfate Oral. Furosemide Oral 40 mg, daily. Gabapentin Oral. Levothyroxine Sodium Oral 112 mcg, daily. Lisinopril Oral 20 mg, daily. Lotrimin cream 25 powder prn . Nitrofurantoin Monohyd Macro Oral (Capsule 100 mg). Nortriptyline HCl Oral 10 mg, at bedtime. Nystatin External. Omeprazole Oral 20 mg, daily. Oxybutynin Chloride Oral 5 mg, daily. OxyCODONE HCl Oral 10 mg, 4x a day as needed. Oyster shell 500mg/200mg day. Polyerhylene glycol 3350 powder, day. Spironolactone Oral 25 mg, daily. Venlafaxine HCl ER Oral 225mg day. Vit b - 12 1000mg day. Vit d-3 2000 mg day . --13:14 Holli Hardwick R.N. Lantus Subcutaneous. --14:23 Holli Hardwick R.N. The following entry was struck and corrected by Holli Hardwick R.N., 14:00 (05/30/16) Reason for correction - other(correction). <<STRICKEN ENTRY-- Warfarin Sodium Oral 4 mg s/s//// 5mg onm//. --13:14 Holli Hardwick R.N. --END STRIKE>>. Allergies Sulfa Antibiotics. --13:14 Holli Hardwick R.N. Medication/allergy information source: the patient's family and imported external medical record. --13:30 Holli Hardwick R.N. History Arrived by EMS. Historian: patient and family. Primary physician (Dr. Shayy Calderon at [facility]). ( Pt was brought from [facility], as per EMS pt had 2 bleeding episodes, unsure the source, either nose or mouth. Pt's daughter states that pt has had multiple epistaxis, has had clots from her mouth but never copious amount from her mouth (due to her bleeding disorder-hereditary hemorrhagic telangiectasia . Pt's daughter states that she has been weak, not eating or drinking much.). This started today. This is a new problem. Symptoms gone now. She has had a cough and skin rash located on the left leg. ( Also pt has a rash like on her left leg, as per daughter its new.). Denies muscle aches. 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 See EMS report. PAST MEDICAL HX: Immunizations: up-to-date. The patient has had a hysterectomy. SOCIAL HX: Former smoker, end date 2013. No alcohol use or drug use. No infectious disease exposure. ABUSE ASSESSMENT: No report of abuse. SELF HARM ASSESSMENT: A self harm assessment was performed. The patient answered "no" to the question "Do you have thoughts of harming or killing yourself?" and "Have you recently had thoughts about harming or killing others?". FALL RISK ASSESSMENT: Fall risk assessment completed. No fall risk identified. NUTRITIONAL RISK ASSESSMENT: The nutritional risk assessment revealed no deficiencies. FUNCTIONAL ASSESSMENT: Functional assessment: no impairments noted. LEARNING NEEDS ASSESSMENT: The learning needs assessment revealed no barriers. SKIN INTEGRITY ASSESSMENT: Skin integrity risk assessment completed. No skin integrity risk identified. --13:30 Holli Hardwick R.N. PROBLEMS: Facial Fracture. Rhabdomyolysis. Dementia. Urinary Incontinence. Renal Insufficiency. Hypotension. Renal Failure. GI Bleeding. Thyroid Disease. Hypertension. Congestive Heart Failure. Diabetes Mellitus. CVA - Cerebrovascular Accident. UTI - Urinary Tract Infection. Fall. Hereditary hemorrhagic telangiectasia. Anemia. Hyperlipidemia. Lower Extremity Pain. Arthritis. Sleep Apnea. PE. Gerd. Hypercholesterolemia. Anxiety. Anemia . Amp lt leg bka . DVT - Deep Venous Thrombosis. --13:16 Holli Hardwick R.N. ADDITIONAL SURGERIES: Amputation Below Knee. Cataract Surgery. Cholecystectomy. Hysterectomy. Knee replacements b/l. Shoulder replacement right. Total Hip Replacement. --13:16 Holli Hardwick R.N. Interventions ID band on patient. --13:30 Holli Hardwick R.N. PHYSICAL ASSESSMENT To room via stretcher. GENERAL / NEURO / PSYCH: Alert. The patient is disoriented to person and place. She has had weakness. Pupillary exam: Right pupil 2mm, round and briskly reactive to light directly. Left pupil: 2mm, round and briskly reactive to light directly. HEENT: Mucous membranes are pink. RESPIRATORY: Respirations not labored. Decreased breath sounds in the bases bilaterally. Wheezes in the right lung base posteriorly and mid-lung posteriorly. CVS: Capillary refill less than 2 seconds. Pulses within normal limits. GI / : Abdominal distention. Abdomen soft and nontender and normal bowel sounds. No abdominal tenderness. SKIN: Skin intact. Skin is warm and dry. Normal skin turgor. Poor skin turgor. Skin breakdown noted on left knee and left calf; pressure sore with damage down to fascia (Stage III) noted on left knee and left calf; present on arrival. --13:34 Holli Hardwick R.N. NURSING PROGRESS NOTES 13:34 05/30/16. BP: 166/68 (regular adult cuff) taken on the right arm, via an automated monitor, while lying. HR: 75. RR: 14. O2 saturation: 94% on room air. Pain level now: 06/14. --13:35 Holli Hardwick R.N. The initial plan of care for this patient has been created This plan of care was discussed with the patient. Pulse oximeter and NIBP monitor placed on patient. Patient gowned. Warming measures: blanket applied. Reassurance given. GENERAL / NEURO / PSYCH: Denies headache or anxiety. RESPIRATORY: Denies difficulty breathing. CVS: Denies chest pain. Two patient identifiers checked. Call light placed in reach. Side rails up x 2. Bed placed in lowest position. Brakes of bed on. Patient ready for evaluation- [employer]E notified. --13:35 Holli Hardwick R.N. 13:48 05/30/2016 Site #1 started via IV in the left antecubital space with an 20g angiocath; one attempt. Blood drawn: rainbow set. Labeled in the presence of the patient and sent to the lab. --13:53 Holli Hardwick R.N. 13:54 05/30/2016 Started bag #1 1000 mL IV Fluids IV NS (Saline); at 999 mL/hr over 1 hour(s) via site #1 via IV pump. Allergies verified and confirmed 5 rights. IV patency established. IV site checked: no pain, redness, or swelling. IV flushed thoroughly pre- and post-medication administration. --13:54 Holli Hardwick R.N. 13:45 05/30/16. BP: 166/77. HR: 78. RR: 14. O2 saturation: 94% on room air. Pain level now: 04/14. --13:56 Holli Hardwick R.N. Reassurance given. The patient is calm. Overall patient status is the same- she states feels the same. GENERAL / NEURO / PSYCH: Denies headache. RESPIRATORY: Denies difficulty breathing. No respiratory distress present. Expiratory wheezes in the right mid-lung posteriorly. CVS: Denies chest pain. Call light placed in reach. --13:56 Holli Hardwick R.N. 14:37 05/30/16. BP: 179/92 (regular adult cuff) taken on the right arm, via an automated monitor, while lying. HR: 79. RR: 14. O2 saturation: 100% on nasal cannula at 2 liters/minute. Temp: 97.7 F (oral). Pain level now: 04/14. --14:39 Holli Hardwick R.N. Reassurance given. The patient is calm. Overall patient status is the same- she states feels the same. GENERAL / NEURO / PSYCH: Denies headache or anxiety. RESPIRATORY: Denies difficulty breathing. No respiratory distress present. CVS: Denies chest pain. GI / : Denies nausea. Call light placed in reach. --14:39 Holli Hardwick R.N. ( No further episodes of bleeding noted since pt's arrival to ED). --15:07 Holli Hardwick R.N. Care transferred and report given (Rogerio Riley). --15:21 Holli Hardwick R.N. 15:00 05/30/2016 IV Fluids IV NS Discontinued: bag #1 infused. Total amount infused: 1000 mL. IV patency established. IV site checked: no pain, redness, or swelling. IV flushed thoroughly. --20:47 Osvaldo Browne R.N. 16:23 05/30/2016 Vit K (Vitamin K1) IM 10 mg given. Given in the right ventral gluteus. Allergies verified and confirmed 5 rights. --16:28 Osvaldo Browne R.N. DISPOSITION / DISCHARGE 17:02 05/30/2016 Site #1 removed upon discharge. Bandaid applied. --17:02 Joleen Samaniego R.N. 17:07 05/30/16. Condition at departure: improved. Learning barriers present. Teaching performed with the patient and family. Discharge instructions provided and reviewed with the patient and family. Patient and family verbalized understanding. Written instructions provided in [place]ut[place]. The patient was discharged by the physician. She was discharged to the senior care and accompanied by family. She left the Emergency Department via ambulance and on a stretcher. Driving (Ambulance). --17:07 Joleen Samaniego R.N. 17:05 05/30/16. BP: 170/78 (regular adult cuff) taken on the right arm, while sitting. HR: 80. RR: 18. O2 saturation: 98% on nasal cannula at 2 liters/minute. Temp: 97.3 F (oral). Pain level now: 06/14. --17:07 Joleen Samaniego R.N. 17:08 05/30/16. ( Patient will wait in room with daughter for ambulance to get her and take her back to [facility]). --17:08 Joleen Samaniego R.N. 17:45 05/30/16. BP: 139/97. HR: 82. RR: 16. O2 saturation: 96% on room air. Temp: 98.8 F (oral). Pain level now: 03/17. Additional comments: Generalized aches and pain. --18:35 Osvaldo Browne R.N. Departure time: 1750. --18:35 Osvaldo Browne R.N. Locked/Released at 05/30/2016 20:49 by Osvaldo Browne R.N.
--- NOTE | 2016-05-30 15:57 | ED ORDER SUMMARY ---
..... Patient: ABBIE CANELA OrderSheet [facility] VisitID: [id number] [address] [place] [address] 71y, F Registration Date/Time: 05/30/2016 ORDER SHEET Weight: 87.5 kg (estimated) Allergies: Sulfa Antibiotics GENERAL ORDERS: CBC w Diff Urgent (13:28 05/30/2016 HBivens A.R.N.P.) (Ack 13:31 KHoerner) (13:52 EHassan R.N.) CMP Urgent (13:28 05/30/2016 HBivens A.R.N.P.) (Ack 13:31 KHoerner) (13:52 EHassan R.N.) PT with INR Urgent (13:28 05/30/2016 HBivens A.R.N.P.) (Ack 13:31 KHoerner) (13:52 EHassan R.N.) PTT Urgent (13:28 05/30/2016 HBivens A.R.N.P.) (Ack 13:31 KHoerner) (13:52 EHassan R.N.) MEDICATION ORDERS: Vit K IM 10 mg (NOW) (15:55 05/30/2016 HBivens A.R.N.P.) (16:28 JRomanelli R.N.) IV FLUIDS: IV NS : initial bolus 1000 mL (1000 mL/hr), then none - (NOW) (13:28 05/30/2016 HBivens A.R.N.P.) (13:54 EHassan R.N.) IV Saline Lock (13:28 05/30/2016 HBivens A.R.N.P.) (13:53 EHassan R.N.) ORDER SHEET NOTES: [Electronically signed by Denisa HuR.N.P. (18:18 05/30/2016)] [Electronically signed by Osvaldo Browne R.N. (20:49 05/30/2016)] [Electronically locked/signed by Osvaldo Browne R.N. (20:49 05/30/2016)]
--- NOTE | 2016-05-30 15:57 | ED ORDER SUMMARY ---
..... Patient: ABBIE CANELA OrderSheet [facility] VisitID: [id number] [address] [place] [address] 71y, F Registration Date/Time: 05/30/2016 ORDER SHEET Weight: 87.5 kg (estimated) Allergies: Sulfa Antibiotics GENERAL ORDERS: CBC w Diff Urgent (13:28 05/30/2016 HBivens A.R.N.P.) (Ack 13:31 KHoerner) (13:52 EHassan R.N.) CMP Urgent (13:28 05/30/2016 HBivens A.R.N.P.) (Ack 13:31 KHoerner) (13:52 EHassan R.N.) PT with INR Urgent (13:28 05/30/2016 HBivens A.R.N.P.) (Ack 13:31 KHoerner) (13:52 EHassan R.N.) PTT Urgent (13:28 05/30/2016 HBivens A.R.N.P.) (Ack 13:31 KHoerner) (13:52 EHassan R.N.) MEDICATION ORDERS: Vit K IM 10 mg (NOW) (15:55 05/30/2016 HBivens A.R.N.P.) (16:28 JRomanelli R.N.) IV FLUIDS: IV NS : initial bolus 1000 mL (1000 mL/hr), then none - (NOW) (13:28 05/30/2016 HBivens A.R.N.P.) (13:54 EHassan R.N.) IV Saline Lock (13:28 05/30/2016 HBivens A.R.N.P.) (13:53 EHassan R.N.) ORDER SHEET NOTES: [Electronically signed by Denisa HuR.N.P. (18:18 05/30/2016)] [Electronically signed by Osvaldo Browne R.N. (20:49 05/30/2016)] [Electronically locked/signed by Osvaldo Browne R.N. (20:49 05/30/2016)]
--- NOTE | 2016-05-30 20:49 | ED MAR SUMMARY ---
..... Medication Administration Record [facility] [address] [place] [place] [address] Patient: ABBIE CANELA Visit ID: [id number] 71y, F Weight: 87.5 kg Height/Length: 66 in BMI: 31.2 ALLERGIES: Sulfa Antibiotics Start 13:54 05/30/2016 Holli Hardwick R.NChristie, Stop 15:00 05/30/2016 Osvaldo Browne R.N. Medication Administered: IV NS (SALINE), Dose: IV Fluids over 1 hour(s), Rate: 999 mL/hr, Dispensed: 1000 mL bag, Site: #1 left AC. Medication Ordered: IV NS : initial bolus 1000 mL (1000 mL/hr), then none - (NOW). Given 16:23 05/30/2016 Osvaldo Browne, R.N. Medication Administered: VIT K [IM] (VITAMIN K1), Dose: 10 mg IM. Medication Ordered: Vit K IM 10 mg (NOW).
--- NOTE | 2016-05-30 20:49 | ED DISCHARGE INSTRUCTIONS ---
Patient: ABBIE CANELA General Instructions [facility] VisitID: [id number] [address] [place] [address] 71y, F Registration Date/Time: 05/30/2016 Abnormal tests: (Elevated PTT and InR). INSTRUCTIONS (withhold Coumadin til follow up and repeat blood work is finished, as discussed). Warnings: Further evaluation is necessary in order to recheck abnormal lab, obtain test results and conduct further tests. It is very important to follow up with a physician. GENERAL WARNINGS: Return or contact your physician immediately if your condition worsens or changes unexpectedly, if not improving as expected, or if other problems arise. Specifically return if problem worsens. Follow-up: Follow up with your doctor tomorrow. Summary of care provided to patient and family. Understanding of the discharge instructions verbalized by parent and family. (Electronically signed by Denisa Hu A.R.N.P. 05/30/2016 18:18)
--- NOTE | 2016-05-30 20:49 | ED MED RECONCILIATION SUMMARY ---
Patient: ABBIE CANELA Medication Reconciliation Report [facility] VisitID: [id number] [address] [place] [address] 71y, F Registration Date/Time: 05/30/2016 Weight: 87.5 kg Height/Length: 66 in. BMI: 31.2 ALLERGIES: Sulfa Antibiotics The patient's Home Medications are listed below: THE FOLLOWING MEDICATIONS NEED TO BE RECONCILED: Antacid Oral Asa 81mg day Atorvastatin Calcium Oral 80 mg, daily Calcitriol 0.25mg day Ferrous Sulfate Oral Furosemide Oral 40 mg, daily Gabapentin Oral Lantus Subcutaneous Levothyroxine Sodium Oral 112 mcg, daily Lisinopril Oral 20 mg, daily Lotrimin cream 25 powder prn Nitrofurantoin Monohyd Macro Oral (100 mg) Nortriptyline HCl Oral 10 mg, at bedtime Nystatin External Omeprazole Oral 20 mg, daily Oxybutynin Chloride Oral 5 mg, daily OxyCODONE HCl Oral 10 mg, 4x a day Oyster shell 500mg/200mg day Polyerhylene glycol 3350 powder, day Spironolactone Oral 25 mg, daily Venlafaxine HCl ER Oral 225mg day Vit b - 12 1000mg day Vit d-3 2000 mg day Warfarin Sodium Oral 2.5mg s///// 5mg on// The source(s) of the original Home Medication information: patient's family member patient's imported external medical record The following Medications were given to the patient in the Emergency Department: IV NS IV Fluids bolus 0, then 999 mL/hr, administered: 05/30/2016 1:54:00 PM Vit K [IM] IM 10 mg, administered: 05/30/2016 4:23:00 PM The following Medications were prescribed to the patient: None.
--- NOTE | 2016-05-30 20:49 | ED DISCHARGE INSTRUCTIONS ---
Patient: ABBIE CANELA General Instructions [facility] VisitID: [id number] [address] [place] [address] 71y, F Registration Date/Time: 05/30/2016 Abnormal tests: (Elevated PTT and InR). INSTRUCTIONS (withhold Coumadin til follow up and repeat blood work is finished, as discussed). Warnings: Further evaluation is necessary in order to recheck abnormal lab, obtain test results and conduct further tests. It is very important to follow up with a physician. GENERAL WARNINGS: Return or contact your physician immediately if your condition worsens or changes unexpectedly, if not improving as expected, or if other problems arise. Specifically return if problem worsens. Follow-up: Follow up with your doctor tomorrow. Summary of care provided to patient and family. Understanding of the discharge instructions verbalized by parent and family. (Electronically signed by Denisa Hu A.R.N.P. 05/30/2016 18:18)
--- NOTE | 2016-05-30 20:49 | ED MAR SUMMARY ---
..... Medication Administration Record [facility] [address] [place] [address] Patient: ABBIE CANELA Visit ID: [id number] 71y, F Weight: 87.5 kg Height/Length: 66 in BMI: 31.2 ALLERGIES: Sulfa Antibiotics Start 13:54 05/30/2016 Holil Hardwick R.NChristie, Stop 15:00 05/30/2016 Osvaldo Browne R.N. Medication Administered: IV NS (SALINE), Dose: IV Fluids over 1 hour(s), Rate: 999 mL/hr, Dispensed: 1000 mL bag, Site: #1 left AC. Medication Ordered: IV NS : initial bolus 1000 mL (1000 mL/hr), then none - (NOW). Given 16:23 05/30/2016 Osvaldo Browne, R.N. Medication Administered: VIT K [IM] (VITAMIN K1), Dose: 10 mg IM. Medication Ordered: Vit K IM 10 mg (NOW).
--- NOTE | 2016-05-30 20:49 | ED MED RECONCILIATION SUMMARY ---
Patient: ABBIE CANELA Medication Reconciliation Report [facility] VisitID: [id number] [address] [place] [address] 71y, F Registration Date/Time: 05/30/2016 Weight: 87.5 kg Height/Length: 66 in. BMI: 31.2 ALLERGIES: Sulfa Antibiotics The patient's Home Medications are listed below: THE FOLLOWING MEDICATIONS NEED TO BE RECONCILED: Antacid Oral Asa 81mg day Atorvastatin Calcium Oral 80 mg, daily Calcitriol 0.25mg day Ferrous Sulfate Oral Furosemide Oral 40 mg, daily Gabapentin Oral Lantus Subcutaneous Levothyroxine Sodium Oral 112 mcg, daily Lisinopril Oral 20 mg, daily Lotrimin cream 25 powder prn Nitrofurantoin Monohyd Macro Oral (100 mg) Nortriptyline HCl Oral 10 mg, at bedtime Nystatin External Omeprazole Oral 20 mg, daily Oxybutynin Chloride Oral 5 mg, daily OxyCODONE HCl Oral 10 mg, 4x a day Oyster shell 500mg/200mg day Polyerhylene glycol 3350 powder, day Spironolactone Oral 25 mg, daily Venlafaxine HCl ER Oral 225mg day Vit b - 12 1000mg day Vit d-3 2000 mg day Warfarin Sodium Oral 2.5mg s///// 5mg on// The source(s) of the original Home Medication information: patient's family member patient's imported external medical record The following Medications were given to the patient in the Emergency Department: IV NS IV Fluids bolus 0, then 999 mL/hr, administered: 05/30/2016 1:54:00 PM Vit K [IM] IM 10 mg, administered: 05/30/2016 4:23:00 PM The following Medications were prescribed to the patient: None.
== END 2016-05-30 17:50 | disposition home or self-care (01) ==
LOC: ED SRH 12:52
DX: R79.1 Abnormal coagulation profile (principal); E07.9 Disorder of thyroid, unspecified; I10 Essential (primary) hypertension; E11.9 Type 2 diabetes mellitus without complications; E78.00 Pure hypercholesterolemia, unspecified; Z79.01 Long term (current) use of anticoagulants; Z79.899 Other long term (current) drug therapy; Z79.4 Long term (current) use of insulin; Z79.82 Long term (current) use of aspirin; Z87.891 Personal history of nicotine dependence
CPT/HCPCS: 90100; 94001; 94060; 95059

== ENCOUNTER 2016-06-16 12:47 | Emergency (ER) | payer OTHER ==
--- NOTE | 2016-06-16 14:32 | DIAGNOSTIC IMAGING REPORT ---
PROCEDURE: CT HEAD WITHOUT CONTRAST INDICATION: WEAKNESS TECHNIQUE: Axial CT images were acquired through the head. Coronal and sagittal reformations were created. COMPARISON: Head CT 04/27/2016 FINDINGS: Mild to moderate cerebral cortical atrophy and moderate prominence of the ventricular system, stable. Scattered small patchy hypodensity in the periventricular and subcortical white matter. Focal hypodensity in the basal ganglia bilaterally , focal hypodensity in the left thalamus, right external and internal capsule. No new cortical defects. No intracranial hemorrhage or extraaxial fluid collections. Ventricles are normal in size, shape and position. There is no mass, mass effect or midline shift. The chavez-white matter differentiation is normal. There is no edema. Mild calcific atherosclerosis of the intracranial internal carotid arteries. The calvarium is intact. A lobular soft tissue opacification of the left sphenoid sinus, improved compared to the previous study and mild thickening of the ethmoids. Left-sided mastoid effusion. Mild diffuse soft tissue swelling over the frontal region centered just to the left of midline. IMPRESSION: 1. No CT evidence of acute intracranial process. 2. Mild atrophy of the chronic prominence of the ventricular system slightly out of proportion. 3. Lacunar infarcts in the left thalamus and right deep white matter tracts. 4. Sphenoid sinus disease, improved compared to priors. 5. Mildly impacted nasal bone fracture. All CT scans at this facility use dose modulation, iterative reconstruction, and/or weight-based dosing when appropriate to reduce radiation dose to as low as reasonably achievable.
--- NOTE | 2016-06-16 15:19 | ED CLINICAL REPORT ---
Clinical Report - Physicians/Mid Levels [facility] [address] [place] [address] 06/16/2016 12:47 Patient: ABBIE CANELA Time Seen: 13:13; initial patient contact, initial documentation, patient care assumed. Arrived- By private vehicle. Historian- patient. History limited by altered mental status and dementia. HISTORY OF PRESENT ILLNESS Chief Complaint: WEAKNESS. This started today and is still present. The patient has had weakness. No numbness, tingling, impaired speech or swallowing or visual disturbance. No recent fall. No difficulty walking. The patient has had altered mental status. Is not usually alert and oriented X3. Does not usually have normal mobility. She is usually alert but confused. (intermediate sent pt over for eval for weakness, altered mental status, low blood pressure, pt telling me they thought she was having a stroke). Similar symptoms previously: Chronically. ( pt suffers from dementia). Recent medical care: Not recently seen/assessed. REVIEW OF SYSTEMS No fever, chest pain or difficulty breathing. All systems otherwise negative, except as recorded above. PAST HISTORY See nurses notes. ( PROBLEMS: Contusion. Abrasion(s). Head Injury. Facial Fracture. Rhabdomyolysis. Dementia. Urinary Incontinence. Urinary. Abnormal Test. Renal Insufficiency. Hypotension. Renal Failure. GI Bleeding. Thyroid Disease. Hypertension. Congestive Heart Failure. Diabetes Mellitus. CVA - Cerebrovascular Accident. UTI - Urinary Tract Infection. Fall. Hereditary hemorrhagic telangiectasia. Anemia. Hyperlipidemia. Lower Extremity Pain. Arthritis. Sleep Apnea. PE. Gerd. Hypercholesterolemia. Anxiety. Anemia . Amp lt leg bka . DVT - Deep Venous Thrombosis. --13:04 Osvaldo Browne RNohemi. Cellulitis [RuleOut]. --13:04 Osvaldo Browne R.N. ADDITIONAL SURGERIES: Amputation Below Knee. Cataract Surgery. Cholecystectomy. Hysterectomy. IVC Filter. Knee replacements b/l. Shoulder replacement right. Total Hip Replacement. --13:04 Osvaldo Browne R.N.). SOCIAL HISTORY Former smoker. No alcohol use. No recent travel. Is a local resident. Resides in an assisted living center. FAMILY HISTORY Negative. ADDITIONAL NOTES The nursing notes have been reviewed with agreement regarding the chief complaint, HPI, ROS, PMH and patient medications and allergies. PHYSICAL EXAM Vital Signs: 06/16/2016 12:53 BP: 151/71. HR: 76. RR: 16. O2 saturation: 99%. Temp: 98.7 F. Have been reviewed as normal and appear to be correct. Appearance: Alert. No acute distress. Head: Head atraumatic. Eyes: Pupils equal, round and reactive to light. ENT: Normal ENT inspection. Airway intact. Pharynx normal. Neck: Normal inspection. Neck supple. CVS: Normal heart rate and rhythm. Heart sounds normal. Pulses normal. Respiratory: No respiratory distress. Breath sounds normal. Abdomen: Soft and nontender. No organomegaly. Back: Normal inspection. Skin: Skin warm and dry. Normal skin color. No rash. Normal skin turgor. Extremities: Extremities exhibit normal ROM. No lower extremity edema. (R below knee amputee). Neuro: Alert. Disoriented. The patient is disoriented to time and place. Mood/affect normal. Speech normal. Cranial nerves normal (as tested). No cerebellar findings. No motor deficit. No sensory deficit. LABS, X-RAYS, AND EKG EKG: EKG time: (1333). No acute process. No acute ischemia. Normal EKG. Rate: 68. Normal EKG. interpreted by dr mcclain and reviewed by me. Interpretation time: 1334. CT Head: No acute disease. (IMPRESSION: 1. No CT evidence of acute intracranial process. 2. Mild atrophy of the chronic prominence of the ventricular system slightly out of proportion. 3. Lacunar infarcts in the left thalamus and right deep white matter tracts. 4. Sphenoid sinus disease, improved compared to priors. 5. Mildly impacted nasal bone fracture. All CT scans at this facility use dose modulation, iterative reconstruction, and/or weight-based dosing when appropriate to reduce radiation dose to as low as reasonably achievable. Electronically Final signed by:Yonny Biswas MD 06/16/2016 2:32:32 PM). The study was interpreted by the radiologist. Laboratory Tests: UA-Culture if indicated: (BETHANY: 06/16/2016 14:30) ( [facility] 06/16/2016 15:13) Final results Test Result Flag Units (Reference) URINE COLOR YELLOW URINE APPEARANCE CLOUDY URINE GLUCOSE NEGATIVE (NEGATIVE) URINE BILIRUBIN NEGATIVE (NEGATIVE) URINE KETONE NEGATIVE (NEGATIVE) URINE SPECIFIC GRAVITY 1.020 (1.010-1.030) URINE PH 6.0 (5.0-8.0) URINE PROTEIN TRACE (NEGATIVE) URINE UROBILINOGEN 0.2 EU/dL (0.2-1.0) URINE NITRITE NEGATIVE (NEGATIVE) URINE BLOOD 1+ (NEGATIVE) URINE LEUK ESTERASE POSITIVE (NEGATIVE) URINE RBC NONE SEEN rbc/hpf (0-1) URINE WBC 50-75 wbc/hpf (0-1) URINE EPITHELIAL CELLS 0-1 EPI/hpf (0-5) URINE BACTERIA MANY (4+) (NONE SEEN) URINE COMMENT CULTURE INDICATED URINE CULTURES ARE SET-UP BASED ON THE FOLLOWING CRITERIA:POSITIVE NITRITEPOSITIVE LEUKOCYTE ESTERASEGREATER THAN 10 WHITE BLOOD CELLSMODERATE (2+) OR GREATER BACTERIA CBC w Diff: (BETHANY: 06/16/2016 13:22) ( [facility] 06/16/2016 13:54) Final results Test Result Flag Units (Reference) WHITE BLOOD COUNT 10.4 K/uL (4.5-11.5) RED BLOOD COUNT 3.77 L M/uL (4.00-5.20) HEMOGLOBIN 11.8 L gm/dL (12.0-16.0) HEMATOCRIT 36.2 % (36.0-46.0) MEAN CELL VOLUME 96 fL (80-100) MEAN CORPUSCULAR HGB 31 pg (26-34) MEAN CORPUSCULAR HGB CONC 33 g/dL (31-37) RED CELL DISTRIBUTION WIDTH 15.8 H % (11.6-14.8) PLATELET COUNT 290 K/uL (150-400) NEUTROPHIL % 68.2 % (50-75) LYMPH % 14.7 L % (25-40) MONO % 6.0 % (3-14) EOSINOPHIL % 10.8 H % (0-4) BASOPHIL % 0.3 % (0-2) CHEM 13 PANEL: (BETHANY: 06/16/2016 13:22) ( MsgRcvd 06/16/2016 14:23) Final results Test Result Flag Units (Reference) GLUCOSE 169 H mg/dL (70-110) BUN 29 H mg/dL (7-18) CREATININE 2.0 H mg/dL (0.6-1.3) Estimated GFR 25.96 mL/min Estimated GFR- 31.46 mL/min Note: Persistent reduction over 3 months in eGFR<60 mL/min/1.73 m2 defines CKD. Patients with eGFR values>=60 mL/min/1.73 m2 may also have CKD if evidence ofpersistent proteinuria. Additional information may be foundat www.kidney.org. SODIUM 151 H mmol/L (136-145) POTASSIUM 4.2 mmol/L (3.5-5.1) CHLORIDE 112 H mmol/L (98-107) CARBON DIOXIDE 30 mmol/L (21-32) CALCIUM 11.7 H mg/dL (8.5-10.1) TOTAL PROTEIN 7.8 g/dL (6.4-8.2) ALBUMIN 3.2 L g/dL (3.3-5.0) BILIRUBIN, TOTAL 0.2 mg/dL (0.0-1.0) ALKALINE PHOSPHATASE 115 U/L (46-116) AST (SGOT) 18 U/L (15-37) ALT (SGPT) 26 U/L (12-78) CPK 54 U/L (24-260) MAGNESIUM 1.9 mg/dL (1.8-2.4) TROPONIN I <0.05 L ng/mL (0.00-1.5) TROPONIN REFERENCE RANGE:<0.1 NEGATIVE0.1-1.5 INDETERMINANT>1.5 POSITIVE THYROID STIMULATING HORMONE 0.612 uIU/mL (0.30-3.74) C-REACTIVE PROTEIN 1.0 H mg/dL (0.0-0.9) [id number]: (BETHANY: 06/16/2016 13:22) ( MsgRcvd 06/16/2016 14:24) Final results Test Result Flag Units (Reference) PROCALCITONIN <0.5 ng/mL (0-0.5) PCT Concentration: Interpretation : Risk/option for action PCT <=0.5 ng/mL : Systemic : Low risk forinfection(sepsis): progression to severeis not likely. : systemic infection.Local bacterial : CAUTION-PCT levelsinfection is : below 0.5 ng/mL do notpossible. : exclude an infection,because localizedinfections (withoutsystemic signs) may beassociated with suchlow levels. If PCT ismeasured very earlyafter a bacterialchallenge (usually <6hours), these valuesmay still be low. Inthis case PCT shouldbe re-assessed 6-24hours later. PCT >0.5 and : Systemic infection: Moderate risk for<= 2 ng/mL : (sepsis) is : progression to severepossible, but : systemic infection.other conditions : The patient should beare known to : closely monitoredelevate PCT. : both clinically andby re-assessing PCTwithin 6-24 hours. PCT > 2 ng/mL : Systemic infection: High risk for(sepsis) is likely: progression to severeunless other : systemic infection.causes are known. : PCT >= 10 ng/mL : Important systemic: High likelihood ofinflammatory : severe sepsis orresponse, almost : septic shock.exclusively due to:severe bacterial :sepsis or septic :shock. : . PROGRESS AND PROCEDURES Course of Care: 14:49 06/16/16. old er records reviewed and records from [place] reviewed, no significant lab changes from previous results. Patient counseled in person regarding the patient's stable condition, test results and diagnosis. 15:17. Differential Diagnosis: I considered hypoglycemia, hyperglycemia, diabetic ketoacidosis, thiamine deficiency, niacin deficiency, hypothermia, hyponatremia, hypernatremia, liver failure, kidney failure, thyroid failure, adrenal failure, hypoxia, ischemic stroke, intracranial bleed, subarachnoid hemorrhage and brain tumor as a possible cause of altered mental status in this patient. This is a partial list of diagnoses considered. Above considerations are based on history, physical exam, reassessment, laboratory data, EKG and other information. Differential diagnosis was discussed with patient. Disposition: Discharged home in good and improved condition (15:19). Condition: good and stable. CLINICAL IMPRESSION Acute urinary tract infection with cystitis. No pyelonephritis or hematuria. Not associated with indwelling catheter or obstruction. INSTRUCTIONS Warnings: GENERAL WARNINGS: Return or contact your physician immediately if your condition worsens or changes unexpectedly, if not improving as expected, or if other problems arise. Specifically return if problem worsens. Prescription Medications: Cipro 500 mg: take 1 tab orally every 12 hours for 7 days. Dispense fourteen (14). No refills. Substitution is permissible. Follow-up: Follow up with your doctor in about three days even if well. Call for an appointment. Summary of care provided to patient. Understanding of the discharge instructions verbalized by patient. (Electronically signed by Denisa Hu A.R.N.P. 06/16/2016 18:55)
--- NOTE | 2016-06-16 15:19 | ED ORDER SUMMARY ---
..... Patient: ABBIE CANELA OrderSheet [facility] VisitID: [id number] [address] [place] [address] 71y, F Registration Date/Time: 06/16/2016 ORDER SHEET Weight: 81.6 kg (estimated) Allergies: Sulfa Antibiotics GENERAL ORDERS: Plant Control Aide (Continuous) (Chest Pain) (13:16 06/16/2016 JRomanelli R.N. verbal order read back to HBivens A.R.N.P.) (Ack 13:22 IJurca ER Tech1) (15:24 JRomanelli R.N.) CMP Urgent (13:16 06/16/2016 JRomanelli R.N. verbal order read back to HBivens A.R.N.P.) (Ack 13:22 IJurca ER Tech1) (13:25 JRomanelli R.N.) (Cancelled: Other13:25 JRomanelli R.N.) CBC w Diff Urgent (13:16 06/16/2016 JRomanelli R.N. verbal order read back to HBivens A.R.N.P.) (Ack 13:22 IJurca ER Tech1) (13:25 JRomanelli R.N.) (Cancelled: Other13:25 JRomanelli R.N.) POC Glucose (13:16 06/16/2016 JRomanelli R.N. verbal order read back to HBivens A.R.N.P.) (Ack 13:22 IJurca ER Tech1) (13:26 JRomanelli R.N.) CT Head wo Cont Urgent (13:20 06/16/2016 HBivens A.R.N.P.) (Ack 13:22 IJurca ER Tech1) (14:11 JRomanelli R.N.) Plant Control Aide (Continuous) (13:20 06/16/2016 HBivens A.R.N.P.) (Ack 13:22 IJurca ER Tech1) (15:24 JRomanelli R.N.) (Cancelled: Duplicate Order15:24 JRomanelli R.N.) UA-Culture if indicated Urgent (13:20 06/16/2016 HBivens A.R.N.P.) (Ack 13:22 IJurca ER Tech1) (15:24 JRomanelli R.N.) CRP Urgent (13:20 06/16/2016 HBivens A.R.N.P.) (Ack 13:22 IJurca ER Tech1) (14:11 JRomanelli R.N.) PCT (Procalcitonin) Urgent (13:20 06/16/2016 HBivens A.R.N.P.) (Ack 13:22 IJurca ER Tech1) (14:11 JRomanelli R.N.) TSH Urgent (13:20 06/16/2016 HBivens A.R.N.P.) (Ack 13:22 IJurca ER Tech1) (14:11 JRomanelli R.N.) EKG - ER Stat (13:20 06/16/2016 HBivens A.R.N.P.) (Ack 13:22 IJurca ER Tech1) (13:[facility] Cardiac Panel Stat (13:27 06/16/2016 JRomanelli R.N. verbal order read back to HBivens A.R.N.P.) (Ack 13:28 IJurca ER Tech1) (14:11 JRomanelli R.N.) CBC w Diff Urgent (13:37 06/16/2016 HBivens A.R.N.P.) (Ack 13:39 IJurca ER Tech1) (19:31 JRomanelli R.N.) CMP Urgent (13:37 06/16/2016 HBivens A.R.N.P.) (Ack 13:39 IJurca ER Tech1) (19:31 JRomanelli R.N.) MEDICATION ORDERS: IV FLUIDS: IV NS : initial bolus 1000 mL (1000 mL/hr), then none - (NOW) (13:20 06/16/2016 HBivens A.R.N.P.) (14:18 JRomanelli R.N.) IV Saline Lock (13:20 06/16/2016 HBivens A.R.N.P.) (14:11 JRomanelli R.N.) Ceftriaxone IV 1 gm/50mL (NOW) (16:28 06/16/2016 Rebecca A.R.N.PChristie) (16:43 Yessy Recinos) ORDER SHEET NOTES: [Electronically signed by Denisa HuNChristiePChristie (18:55 06/16/2016)] [Electronically signed by Osvaldo Browne R.N. (19:33 06/16/2016)] [Electronically locked/signed by Osvaldo Browne R.N. (19:33 06/16/2016)]
--- NOTE | 2016-06-16 15:19 | ED NURSING NOTES ---
Clinical Report - Nurses [facility] [address] [place] [address] 06/16/2016 12:47 [id number] Triage time 12:50 Jun 16 2016. Acuity: LEVEL 3. Chief Complaint: ALTERED MENTAL STATUS and (lethargic, Hypotension). Alert. TELMA COMA SCORE: Telma Coma Scale: 15- eyes open spontaneously (4); best verbal response- oriented x 4 (5); best motor response- obeys commands (6). --13:05 Osvaldo Browne R.N. 12:53 06/16/16. BP: 151/71. HR: 76. RR: 16. O2 saturation: 99% on room air. Temp: 98.7 F. Pain level now unable to obtain due to patient condition. --13:05 Osvaldo Browne R.N. Weight: 81.6 kg estimated. Height/Length: 57 inches Estimated. BMI: 39. --12:56 Osvaldo Browne R.N. Medications Antacid Oral. Asa 81mg day. Atorvastatin Calcium Oral 80 mg, daily. Calcitriol 0.25mg day. Ferrous Sulfate Oral 325 mg, 2x a day. Furosemide Oral 40 mg, daily. Gabapentin Oral 300 mg, 2x a day. Lantus Subcutaneous 5 units. Levothyroxine Sodium Oral 112 mcg, daily. Lisinopril Oral 20 mg, daily. Lotrimin cream 25 powder prn Under breasts, PRN. Nortriptyline HCl Oral 10 mg x 2, at bedtime. Nystatin External (Cream 715076 unit/gm) to affected area, 2 x daily. Omeprazole Oral 20 mg, daily. Oxybutynin Chloride Oral 5 mg, 2x a day. Oyster shell 500mg/200mg day. Polyerhylene glycol 3350 powder, day 17 GMS, daily. Spironolactone Oral 25 mg, daily. Venlafaxine HCl ER Oral 225mg day. Vit b - 12 1000mg day. Warfarin Sodium Oral 2.5mg s/s//// 5mg onm//. --12:57 Osvaldo Browne R.N. Vitamin D 3 2000 Units, daily. --13:48 Osvaldo Browne R.N. Oxycodone-Acetaminophen Oral 5/325 mg, 2x a day as needed. --13:52 Osvaldo Browne R.N. Vitamin B-12 Oral (Tablet 1000 mcg) 1 tablet, dailoy. --13:54 Osvaldo Browne R.N. Sea Soft Nasal Mist Nasal (Solution 0.65 %) 1 drop each nostril, 2-3 times daily. --13:59 Osvaldo Browne R.N. Boudreauxs Butt Paste External to perineum, 2 x daily. --14:02 Osvaldo Browne R.N. The following entry was struck and corrected by Osvaldo Browne R.N., 14:05 (06/16/16) Reason for correction - other(correction). <<STRICKEN ENTRY-- Oxybutynin Chloride Oral 5 mg, daily. --12:57 Osvaldo Browne R.N. --END STRIKE>> The following entry was struck and corrected by Osvaldo Browne R.N., 14:04 (06/16/16) Reason for correction - other(correction). <<STRICKEN ENTRY-- Nystatin External. --12:57 Osvaldo Browne R.N. --END STRIKE>> The following entry was struck and corrected by Osvaldo Browne R.N., 14:03 (06/16/16) Reason for correction - other(correction). <<STRICKEN ENTRY-- Lotrimin cream 25 powder prn . --12:57 Osvaldo Browne R.N. --END STRIKE>> The following entry was struck and corrected by Osvaldo Browne R.N., 13:58 (06/16/16) Reason for correction - other(correction). <<STRICKEN ENTRY-- Nortriptyline HCl Oral 10 mg, at bedtime. --12:57 Osvaldo Browne R.N. --END STRIKE>> The following entry was struck and corrected by Osvaldo Browne R.N., 13:56 (06/16/16) Reason for correction - other(correction). <<[facility] ENTRY-- Gabapentin Oral. --12:57 Osvaldo Browne R.N. --END STRIKE>> The following entry was struck by Osvaldo Browne R.N., 13:52 (06/16/16) Reason - wrong value. <<[facility] ENTRY-- OxyCODONE HCl Oral 10 mg, 4x a day as needed. --12:57 Osvaldo Browne R.N. --END STRIKE>> The following entry was struck and corrected by Osvaldo Browne R.N., 13:50 (06/16/16) Reason for correction - other(correction). <<[facility]-- Ferrous Sulfate Oral. --12:57 Osvaldo Browne R.N. --END STRIKE>> The following entry was struck by Osvaldo Browne R.N., 13:48 (06/16/16) Reason - other. <<[facility] ENTRY-- Vit d-3 2000 mg day . --12:57 Osvaldo Browne R.N. --END STRIKE>> The following entry was struck and corrected by Osvaldo Browne R.N., 13:46 (06/16/16) Reason for correction - other(correction). <<[facility] ENTRY-- Polyerhylene glycol 3350 powder, day. --12:57 Osvaldo Browne R.N. --END STRIKE>> The following entry was struck and corrected by Osvaldo Browne R.N., 13:44 (06/16/16) Reason for correction - other(correction). <<[facility] ENTRY-- Lantus Subcutaneous. --12:57 Osvaldo Browne R.N. --END STRIKE>> The following entry was struck by Osvaldo Browne R.N., 13:41 (06/16/16) Reason - other. <<[facility] ENTRY-- Nitrofurantoin Monohyd Macro Oral (Capsule 100 mg). --12:57 Osvaldo Browne R.N. --END STRIKE>>. Allergies Sulfa Antibiotics. --12:57 Osvaldo Browne R.N. Medication/allergy information source: the patient. --13:05 Osvaldo Browne R.N. History Historian: patient. ( Hypotension, Low SaO2, and Lethargy. Pt is a resident [facility] This started today. Unknown when patient was last known well. She has had weakness. ( lethargy, confusion, low SaO2). 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 PAST MEDICAL HX: Immunizations: up-to-date. SOCIAL HX: Former smoker, end date 1996. No alcohol use or drug use. No infectious disease exposure. ABUSE ASSESSMENT: Abuse history: reports abuse. --13:05 Osvaldo Browne R.N. ( EMS states that pt also c/o Chest Pain 07/15 in transit to Hospital.). --13:32 Osvaldo Browne R.N. PROBLEMS: Contusion. Abrasion(s). Head Injury. Facial Fracture. Rhabdomyolysis. Dementia. Urinary Incontinence. Urinary. Abnormal Test. Renal Insufficiency. Hypotension. Renal Failure. GI Bleeding. Thyroid Disease. Hypertension. Congestive Heart Failure. Diabetes Mellitus. CVA - Cerebrovascular Accident. UTI - Urinary Tract Infection. Fall. Hereditary hemorrhagic telangiectasia. Anemia. Hyperlipidemia. Lower Extremity Pain. Arthritis. Sleep Apnea. PE. Gerd. Hypercholesterolemia. Anxiety. Anemia . Amp lt leg bka . DVT - Deep Venous Thrombosis. --13:04 Osvaldo Browne R.N. Cellulitis [RuleOut]. --13:04 Osvaldo Browne R.N. ADDITIONAL SURGERIES: Amputation Below Knee. Cataract Surgery. Cholecystectomy. Hysterectomy. IVC Filter. Knee replacements b/l. Shoulder replacement right. Total Hip Replacement. --13:04 Osvaldo Browne R.N. Interventions ID and allergy band on patient. To treatment room. --13:05 Osvaldo Browne R.N. PHYSICAL ASSESSMENT To room via stretcher. GENERAL / NEURO / PSYCH: Alert. The patient is disoriented to place, time and situation. Patient's speech is abnormal (limited to one or two words). Patient appears well-nourished. RESPIRATORY: Respirations not labored. Breath sounds within normal limits. GI / : Abdomen soft and nontender. SKIN: Skin is warm and dry. Normal skin turgor. --13:07 Pavan, Osvaldo, R.N. NURSING PROGRESS NOTES Patient gowned. Head of bed elevated. Reassurance given to the patient. Patient identifiers checked. Call light placed in reach. Side rails up x 2. Bed placed in lowest position. Brakes of bed on. Patient ready for evaluation- chart flagged and ED physician notified. --13:07 Osvaldo Browne R.N. Oxygen administered by nasal cannula at 2 liters. decatizer, pulse oximeter and NIBP monitor placed on patient; nutritional services cook- Lead II and V1; monitor alarms on. --13:30 Osvaldo Browne R.N. EKG time: (13:13). EKG was performed by a tech and shown to the ED physician. --13:36 Chiquis Castillo Finger stick glucose: 212 mg/dL 13:00; performed by tech; result shown to the RN. --13:37 Chiquis Castillo 13:20. Patient transported to [place] by stretcher with tech. --14:06 Osvaldo Browne R.N. 13:35. Patient returned from CT by stretcher with tech. --14:06 Osvaldo Browne R.N. 14:09 06/16/16. BP: 114/67. HR: 76. RR: 16. O2 saturation: 99% on room air. Pain level now: 0/10. --14:10 Osvaldo Browne R.N. 13:56 06/16/2016 Site #1 started via IV in the right antecubital space with an 20g angiocath, with aseptic technique and good blood return; one attempt. Blood drawn: rainbow set. Labeled in the presence of the patient and sent to the lab. Saline lock flushed with 10 mL saline. --14:11 Osvaldo Browne R.N. 14:08 06/16/2016 Started bag #1 1000 mL IV Fluids IV NS (Saline); at 999 mL/hr over 60 minute(s) via site #1 via IV pump. Allergies verified and confirmed 5 rights. IV patency established. IV site checked: no pain, redness, or swelling. IV flushed thoroughly pre- and post-medication administration. --14:18 Osvaldo Browne R.N. 15:23 06/16/2016 IV Fluids IV NS Discontinued: bag #1 infused. Total amount infused: 1000 mL. --15:23 Holli Hardwick R.N. 16:00 06/16/2016 Started 1 gm of Ceftriaxone IVPB in bag #1 50 mL; at 120 mL/hr over 20 minute(s) via site #1 via IV pump. Allergies verified and confirmed 5 rights. IV patency established. IV site checked: no pain, redness, or swelling. IV flushed thoroughly pre- and post-medication administration. --16:43 Osvaldo Browne R.N. 16:20 06/16/2016 Ceftriaxone IVPB Discontinued: bag #1 infused. Total amount infused: 50 mL. IV patency established. IV site checked: no pain, redness, or swelling. IV flushed thoroughly. (Ceftriaxone 1 GM IVPB). --16:44 Osvaldo Browne R.N. 15:00 06/16/16. BP: 139/67. HR: 72. RR: 16. O2 saturation: 100% on nasal cannula at 2 liters/minute. Pain level now: 0/10. --19:29 Osvaldo Browne R.N. Patient ID band checked for patient name, birthdate and medical record number: patient confirmed. Catheterized urine collected with return of yellow-colored cloudy urine; sample sent to lab for urinalysis and culture. Specimen labeled in the presence of the patient (by RICO De La Garza). --19:29 Osvaldo Browne R.N. 17:05 06/16/2016 Site #1 removed upon discharge. Catheter intact. Manual pressure, bandaid and bandage applied. --19:32 Osvaldo Browne R.N. DISPOSITION / DISCHARGE 17:00 06/16/16. BP: 145/63. HR: 68. RR: 18. O2 saturation: 98% on room air. Temp: 98.5 F (oral). Pain level now: 0/10. --18:24 Osvaldo Browne R.N. Departure time: 1710. --18:24 Osvaldo Browne R.N. 17:10. Condition at departure: improved. No learning barriers present. Discharge instructions provided and reviewed with the patient. Reviewed medication(s) (prescription sent with pt). Reviewed referral to family practice for followup. Family verbalized understanding. Written instructions provided in Serbian. The patient was discharged by the physician. She was discharged home and accompanied by Transport crew. She left the Emergency Department via ambulance and on a stretcher. --18:36 Osvaldo Browne R.N. Locked/Released at 06/16/2016 19:33 by Osvaldo Browne R.N.
--- NOTE | 2016-06-16 15:19 | ED ORDER SUMMARY ---
..... Patient: ABBIE CANELA OrderSheet [facility] VisitID: [id number] [address] [place] [address] 71y, F Registration Date/Time: 06/16/2016 ORDER SHEET Weight: 81.6 kg (estimated) Allergies: Sulfa Antibiotics GENERAL ORDERS: Mortuary Beautician (Continuous) (Chest Pain) (13:16 06/16/2016 JRomanelli R.N. verbal order read back to HBivens A.R.N.P.) (Ack 13:22 IJurca ER Tech1) (15:24 JRomanelli R.N.) CMP Urgent (13:16 06/16/2016 JRomanelli R.N. verbal order read back to HBivens A.R.N.P.) (Ack 13:22 IJurca ER Tech1) (13:25 JRomanelli R.N.) (Cancelled: Other13:25 JRomanelli R.N.) CBC w Diff Urgent (13:16 06/16/2016 JRomanelli R.N. verbal order read back to HBivens A.R.N.P.) (Ack 13:22 IJurca ER Tech1) (13:25 JRomanelli R.N.) (Cancelled: Other13:25 JRomanelli R.N.) POC Glucose (13:16 06/16/2016 JRomanelli R.N. verbal order read back to HBivens A.R.N.P.) (Ack 13:22 IJurca ER Tech1) (13:26 JRomanelli R.N.) CT Head wo Cont Urgent (13:20 06/16/2016 HBivens A.R.N.P.) (Ack 13:22 IJurca ER Tech1) (14:11 JRomanelli R.N.) Mortuary Beautician (Continuous) (13:20 06/16/2016 HBivens A.R.N.P.) (Ack 13:22 IJurca ER Tech1) (15:24 JRomanelli R.N.) (Cancelled: Duplicate Order15:24 JRomanelli R.N.) UA-Culture if indicated Urgent (13:20 06/16/2016 HBivens A.R.N.P.) (Ack 13:22 IJurca ER Tech1) (15:24 JRomanelli R.N.) CRP Urgent (13:20 06/16/2016 HBivens A.R.N.P.) (Ack 13:22 IJurca ER Tech1) (14:11 JRomanelli R.N.) PCT (Procalcitonin) Urgent (13:20 06/16/2016 HBivens A.R.N.P.) (Ack 13:22 IJurca ER Tech1) (14:11 JRomanelli R.N.) TSH Urgent (13:20 06/16/2016 HBivens A.R.N.P.) (Ack 13:22 IJurca ER Tech1) (14:11 JRomanelli R.N.) EKG - ER Stat (13:20 06/16/2016 HBivens A.R.N.P.) (Ack 13:22 IJurca ER Tech1) (13:36 [facility] Cardiac Panel Stat (13:27 06/16/2016 JRomanelli R.N. verbal order read back to HBivens A.R.N.P.) (Ack 13:28 IJurca ER Tech1) (14:11 JRomanelli R.N.) CBC w Diff Urgent (13:37 06/16/2016 HBivens A.R.N.P.) (Ack 13:39 IJurca ER Tech1) (19:31 JRomanelli R.N.) CMP Urgent (13:37 06/16/2016 HBivens A.R.N.P.) (Ack 13:39 IJurca ER Tech1) (19:31 JRomanelli R.N.) MEDICATION ORDERS: IV FLUIDS: IV NS : initial bolus 1000 mL (1000 mL/hr), then none - (NOW) (13:20 06/16/2016 HBivens A.R.N.P.) (14:18 JRomanelli R.N.) IV Saline Lock (13:20 06/16/2016 HBivens A.R.N.P.) (14:11 JRomanelli R.N.) Ceftriaxone IV 1 gm/50mL (NOW) (16:28 06/16/2016 Rebecca A.R.N.PChristie) (16:43 Yessy Recinos) ORDER SHEET NOTES: [Electronically signed by Denisa HuNChristiePChristie (18:55 06/16/2016)] [Electronically signed by Osvaldo Browne R.N. (19:33 06/16/2016)] [Electronically locked/signed by Osvaldo Browne R.N. (19:33 06/16/2016)]
--- NOTE | 2016-06-16 15:19 | ED NURSING NOTES ---
Clinical Report - Nurses [facility] [address] [place] [address] 06/16/2016 12:47 [facility]: [id number] TRI[facility] Triage time 12:50 Jun 16 2016. Acuity: LEVEL 3. Chief Complaint: ALTERED MENTAL STATUS and (lethargic, Hypotension). Alert. TELMA COMA SCORE: Telma Coma Scale: 15- eyes open spontaneously (4); best verbal response- oriented x 4 (5); best motor response- obeys commands (6). --13:05 Osvaldo Browne R.N. 12:53 06/16/16. BP: 151/71. HR: 76. RR: 16. O2 saturation: 99% on room air. Temp: 98.7 F. Pain level now unable to obtain due to patient condition. --13:05 Osvaldo Browne R.N. Weight: 81.6 kg estimated. Height/Length: 57 inches Estimated. BMI: 39. --12:56 Osvaldo Browne R.N. Medications Antacid Oral. Asa 81mg day. Atorvastatin Calcium Oral 80 mg, daily. Calcitriol 0.25mg day. Ferrous Sulfate Oral 325 mg, 2x a day. Furosemide Oral 40 mg, daily. Gabapentin Oral 300 mg, 2x a day. Lantus Subcutaneous 5 units. Levothyroxine Sodium Oral 112 mcg, daily. Lisinopril Oral 20 mg, daily. Lotrimin cream 25 powder prn Under breasts, PRN. Nortriptyline HCl Oral 10 mg x 2, at bedtime. Nystatin External (Cream 998947 unit/gm) to affected area, 2 x daily. Omeprazole Oral 20 mg, daily. Oxybutynin Chloride Oral 5 mg, 2x a day. Oyster shell 500mg/200mg day. Polyerhylene glycol 3350 powder, day 17 GMS, daily. Spironolactone Oral 25 mg, daily. Venlafaxine HCl ER Oral 225mg day. Vit b - 12 1000mg day. Warfarin Sodium Oral 2.5mg s/s//// 5mg onm//. --12:57 Osvaldo Browne R.N. Vitamin D 3 2000 Units, daily. --13:48 Osvaldo Browne R.N. Oxycodone-Acetaminophen Oral 5/325 mg, 2x a day as needed. --13:52 Osvaldo Browne R.N. Vitamin B-12 Oral (Tablet 1000 mcg) 1 tablet, dailoy. --13:54 Osvaldo Browne R.N. Sea Soft Nasal Mist Nasal (Solution 0.65 %) 1 drop each nostril, 2-3 times daily. --13:59 Osvaldo Browne R.N. Boudreauxs Butt Paste External to perineum, 2 x daily. --14:02 Osvaldo Browne R.N. The following entry was struck and corrected by Osvaldo Browne R.N., 14:05 (06/16/16) Reason for correction - other(correction). <<STRICKEN ENTRY-- Oxybutynin Chloride Oral 5 mg, daily. --12:57 Osvaldo Browne R.N. --END STRIKE>> The following entry was struck and corrected by Osvaldo Browne R.N., 14:04 (06/16/16) Reason for correction - other(correction). <<STRICKEN ENTRY-- Nystatin External. --12:57 Osvaldo Browne R.N. --END STRIKE>> The following entry was struck and corrected by Osvaldo Browne R.N., 14:03 (06/16/16) Reason for correction - other(correction). <<STRICKEN ENTRY-- Lotrimin cream 25 powder prn . --12:57 Osvaldo Browne R.N. --END STRIKE>> The following entry was struck and corrected by Osvaldo Browne R.N., 13:58 (06/16/16) Reason for correction - other(correction). <<STRICKEN ENTRY-- Nortriptyline HCl Oral 10 mg, at bedtime. --12:57 Osvaldo Browne R.N. --END STRIKE>> The following entry was struck and corrected by Osvaldo Browne R.N., 13:56 (06/16/16) Reason for correction - other(correction). <<[facility] ENTRY-- Gabapentin Oral. --12:57 Osvaldo Browne R.N. --END STRIKE>> The following entry was struck by Osvaldo Browne R.N., 13:52 (06/16/16) Reason - wrong value. <<[facility] ENTRY-- OxyCODONE HCl Oral 10 mg, 4x a day as needed. --12:57 Osvaldo Browne R.N. --END STRIKE>> The following entry was struck and corrected by Osvaldo Browne R.N., 13:50 (06/16/16) Reason for correction - other(correction). [facility]-- Ferrous Sulfate Oral. --12:57 Osvaldo Browne R.N. --END STRIKE>> The following entry was struck by Osvaldo Borwne R.N., 13:48 (06/16/16) Reason - other. <<[facility] ENTRY-- Vit d-3 2000 mg day . --12:57 Osvaldo Browne R.N. --END STRIKE>> The following entry was struck and corrected by Osvaldo Browne R.N., 13:46 (06/16/16) Reason for correction - other(correction). <<[facility] ENTRY-- Polyerhylene glycol 3350 powder, day. --12:57 Osvaldo Browne R.N. --END STRIKE>> The following entry was struck and corrected by Osvaldo Browne R.N., 13:44 (06/16/16) Reason for correction - other(correction). <<[facility] ENTRY-- Lantus Subcutaneous. --12:57 Osvaldo Browne R.N. --END STRIKE>> The following entry was struck by Osvaldo Browne R.N., 13:41 (06/16/16) Reason - other. <<[facility] ENTRY-- Nitrofurantoin Monohyd Macro Oral (Capsule 100 mg). --12:57 Osvaldo Browne R.N. --END STRIKE>>. Allergies Sulfa Antibiotics. --12:57 Osvaldo Browne R.N. Medication/allergy information source: the patient. --13:05 Osvaldo Browne R.N. History Historian: patient. ( Hypotension, Low SaO2, and Lethargy. Pt is a resident at [facility] This started today. Unknown when patient was last known well. She has had weakness. ( lethargy, confusion, low SaO2). 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 PAST MEDICAL HX: Immunizations: up-to-date. SOCIAL HX: Former smoker, end date 1996. No alcohol use or drug use. No infectious disease exposure. ABUSE ASSESSMENT: Abuse history: reports abuse. --13:05 Osvaldo Browne R.N. ( EMS states that pt also c/o Chest Pain 07/15 in transit to Hospital.). --13:32 Osvaldo Browne R.N. PROBLEMS: Contusion. Abrasion(s). Head Injury. Facial Fracture. Rhabdomyolysis. Dementia. Urinary Incontinence. Urinary. Abnormal Test. Renal Insufficiency. Hypotension. Renal Failure. GI Bleeding. Thyroid Disease. Hypertension. Congestive Heart Failure. Diabetes Mellitus. CVA - Cerebrovascular Accident. UTI - Urinary Tract Infection. Fall. Hereditary hemorrhagic telangiectasia. Anemia. Hyperlipidemia. Lower Extremity Pain. Arthritis. Sleep Apnea. PE. Gerd. Hypercholesterolemia. Anxiety. Anemia . Amp lt leg bka . DVT - Deep Venous Thrombosis. --13:04 Osvaldo Browne R.N. Cellulitis [RuleOut]. --13:04 Osvaldo Browne R.N. ADDITIONAL SURGERIES: Amputation Below Knee. Cataract Surgery. Cholecystectomy. Hysterectomy. IVC Filter. Knee replacements b/l. Shoulder replacement right. Total Hip Replacement. --13:04 Osvaldo Browne R.N. Interventions ID and allergy band on patient. To treatment room. --13:05 Osvaldo Browne R.N. PHYSICAL ASSESSMENT To room via stretcher. GENERAL / NEURO / PSYCH: Alert. The patient is disoriented to place, time and situation. Patient's speech is abnormal (limited to one or two words). Patient appears well-nourished. RESPIRATORY: Respirations not labored. Breath sounds within normal limits. GI / : Abdomen soft and nontender. SKIN: Skin is warm and dry. Normal skin turgor. --13:07 Pavan, Osvaldo, R.N. NURSING PROGRESS NOTES Patient gowned. Head of bed elevated. Reassurance given to the patient. Patient identifiers checked. Call light placed in reach. Side rails up x 2. Bed placed in lowest position. Brakes of bed on. Patient ready for evaluation- chart flagged and ED physician notified. --13:07 Osvaldo Browne R.N. Oxygen administered by nasal cannula at 2 liters. bed and breakfast cook, pulse oximeter and NIBP monitor placed on patient; business information analyst- Lead II and V1; monitor alarms on. --13:30 Osvaldo Browne R.N. EKG time: (13:13). EKG was performed by a tech and shown to the ED physician. --13:36 Chiquis Castillo Finger stick glucose: 212 mg/dL 13:00; performed by tech; result shown to the RN. --13:37 Chiquis Castillo 13:20. Patient transported to [place] by stretcher with tech. --14:06 Osvaldo Browne R.N. 13:35. Patient returned from CT by stretcher with tech. --14:06 Osvaldo Browne R.N. 14:09 06/16/16. BP: 114/67. HR: 76. RR: 16. O2 saturation: 99% on room air. Pain level now: 0/10. --14:10 Osvaldo Browne R.N. 13:56 06/16/2016 Site #1 started via IV in the right antecubital space with an 20g angiocath, with aseptic technique and good blood return; one attempt. Blood drawn: rainbow set. Labeled in the presence of the patient and sent to the lab. Saline lock flushed with 10 mL saline. --14:11 Osvaldo Browne R.N. 14:08 06/16/2016 Started bag #1 1000 mL IV Fluids IV NS (Saline); at 999 mL/hr over 60 minute(s) via site #1 via IV pump. Allergies verified and confirmed 5 rights. IV patency established. IV site checked: no pain, redness, or swelling. IV flushed thoroughly pre- and post-medication administration. --14:18 Osvaldo Browne R.N. 15:23 06/16/2016 IV Fluids IV NS Discontinued: bag #1 infused. Total amount infused: 1000 mL. --15:23 Holli Hardwick R.N. 16:00 06/16/2016 Started 1 gm of Ceftriaxone IVPB in bag #1 50 mL; at 120 mL/hr over 20 minute(s) via site #1 via IV pump. Allergies verified and confirmed 5 rights. IV patency established. IV site checked: no pain, redness, or swelling. IV flushed thoroughly pre- and post-medication administration. --16:43 Osvaldo Browne R.N. 16:20 06/16/2016 Ceftriaxone IVPB Discontinued: bag #1 infused. Total amount infused: 50 mL. IV patency established. IV site checked: no pain, redness, or swelling. IV flushed thoroughly. (Ceftriaxone 1 GM IVPB). --16:44 Osvaldo Browne R.N. 15:00 06/16/16. BP: 139/67. HR: 72. RR: 16. O2 saturation: 100% on nasal cannula at 2 liters/minute. Pain level now: 0/10. --19:29 Osvaldo Browne R.N. Patient ID band checked for patient name, birthdate and medical record number: patient confirmed. Catheterized urine collected with return of yellow-colored cloudy urine; sample sent to lab for urinalysis and culture. Specimen labeled in the presence of the patient (by RICO De La Garza). --19:29 Osvaldo Browne R.N. 17:05 06/16/2016 Site #1 removed upon discharge. Catheter intact. Manual pressure, bandaid and bandage applied. --19:32 Osvaldo Browne R.N. DISPOSITION / DISCHARGE 17:00 06/16/16. BP: 145/63. HR: 68. RR: 18. O2 saturation: 98% on room air. Temp: 98.5 F (oral). Pain level now: 0/10. --18:24 Osvaldo Browne R.N. Departure time: 1710. --18:24 Osvaldo Browne R.N. 17:10. Condition at departure: improved. No learning barriers present. Discharge instructions provided and reviewed with the patient. Reviewed medication(s) (prescription sent with pt). Reviewed referral to family practice for followup. Family verbalized understanding. Written instructions provided in Nepali. The patient was discharged by the physician. She was discharged home and accompanied by Transport crew. She left the Emergency Department via ambulance and on a stretcher. --18:36 Osvaldo Browne R.N. Locked/Released at 06/16/2016 19:33 by Osvaldo Browne R.N.
--- NOTE | 2016-06-16 19:33 | ED MED RECONCILIATION SUMMARY ---
Patient: MONICAANGIEABBIE PAVON Mark Medication Reconciliation Report [facility] VisitID: [id number] [address] [place] [address] 71y, F Registration Date/Time: 06/16/2016 Weight: 81.6 kg Height/Length: 57 in. BMI: 39.0 ALLERGIES: Sulfa Antibiotics The patient's Home Medications are listed below: THE FOLLOWING MEDICATIONS NEED TO BE RECONCILED: Antacid Oral Asa 81mg day Atorvastatin Calcium Oral 80 mg, daily Boudreauxs Butt Paste External to perineum, 2 x daily Calcitriol 0.25mg day Ferrous Sulfate Oral 325 mg, 2x a day Furosemide Oral 40 mg, daily Gabapentin Oral 300 mg, 2x a day Lantus Subcutaneous 5 units Levothyroxine Sodium Oral 112 mcg, daily Lisinopril Oral 20 mg, daily Lotrimin cream 25 powder prn Under breasts, PRN Nortriptyline HCl Oral 10 mg x 2, at bedtime Nystatin External (719784 unit/gm) to affected area, 2 x daily Omeprazole Oral 20 mg, daily Oxybutynin Chloride Oral 5 mg, 2x a day Oxycodone-Acetaminophen Oral 5/325 mg, 2x a day Oyster shell 500mg/200mg day Polyerhylene glycol 3350 powder, day 17 GMS, daily Sea Soft Nasal Mist Nasal (0.65 %) 1 drop each nostril, 2-3 times daily Spironolactone Oral 25 mg, daily Venlafaxine HCl ER Oral 225mg day Vit b - 12 1000mg day Vitamin B-12 Oral (1000 mcg) 1 tablet, dailoy Vitamin D 3 2000 Units, daily Warfarin Sodium Oral 2.5mg s/s//// 5mg on// The source(s) of the original Home Medication information: patient The following Medications were given to the patient in the Emergency Department: IV NS IV Fluids bolus 0, then 999 mL/hr, administered: 06/16/2016 2:08:00 PM Ceftriaxone [IVPB] IVPB bolus 0, then 1 gm 120 mL/hr, administered: 06/16/2016 4:00:00 PM The following Medications were prescribed to the patient: Cipro 500 mg: take 1 tab orally every 12 hours for 7 days. Dispense fourteen (14). No refills. Substitution is permissible. -- Denisa Hu A.R.N.P.
--- NOTE | 2016-06-16 19:33 | ED MED RECONCILIATION SUMMARY ---
Patient: MONICAANGIEABBIE PAVON Mark Medication Reconciliation Report [facility] VisitID: [id number] [address] [place] [address] 71y, F Registration Date/Time: 06/16/2016 Weight: 81.6 kg Height/Length: 57 in. BMI: 39.0 ALLERGIES: Sulfa Antibiotics The patient's Home Medications are listed below: THE FOLLOWING MEDICATIONS NEED TO BE RECONCILED: Antacid Oral Asa 81mg day Atorvastatin Calcium Oral 80 mg, daily Boudreauxs Butt Paste External to perineum, 2 x daily Calcitriol 0.25mg day Ferrous Sulfate Oral 325 mg, 2x a day Furosemide Oral 40 mg, daily Gabapentin Oral 300 mg, 2x a day Lantus Subcutaneous 5 units Levothyroxine Sodium Oral 112 mcg, daily Lisinopril Oral 20 mg, daily Lotrimin cream 25 powder prn Under breasts, PRN Nortriptyline HCl Oral 10 mg x 2, at bedtime Nystatin External (964539 unit/gm) to affected area, 2 x daily Omeprazole Oral 20 mg, daily Oxybutynin Chloride Oral 5 mg, 2x a day Oxycodone-Acetaminophen Oral 5/325 mg, 2x a day Oyster shell 500mg/200mg day Polyerhylene glycol 3350 powder, day 17 GMS, daily Sea Soft Nasal Mist Nasal (0.65 %) 1 drop each nostril, 2-3 times daily Spironolactone Oral 25 mg, daily Venlafaxine HCl ER Oral 225mg day Vit b - 12 1000mg day Vitamin B-12 Oral (1000 mcg) 1 tablet, dailoy Vitamin D 3 2000 Units, daily Warfarin Sodium Oral 2.5mg s/s//// 5mg on// The source(s) of the original Home Medication information: patient The following Medications were given to the patient in the Emergency Department: IV NS IV Fluids bolus 0, then 999 mL/hr, administered: 06/16/2016 2:08:00 PM Ceftriaxone [IVPB] IVPB bolus 0, then 1 gm 120 mL/hr, administered: 06/16/2016 4:00:00 PM The following Medications were prescribed to the patient: Cipro 500 mg: take 1 tab orally every 12 hours for 7 days. Dispense fourteen (14). No refills. Substitution is permissible. -- Denisa Hu A.R.N.P.
--- NOTE | 2016-06-16 19:33 | ED MAR SUMMARY ---
..... Medication Administration Record [facility] [address] [place] [address] Patient: ABBIE CANELA Visit ID: [id number] 71y, F Weight: 81.6 kg Height/Length: 57 in BMI: 39 ALLERGIES: Sulfa Antibiotics Start 14:08 06/16/2016 Osvaldo Browne R.N., Stop 15:23 06/16/2016 Holli Hardwick R.N. Medication Administered: IV NS (SALINE), Dose: IV Fluids over 60 minute(s), Rate: 999 mL/hr, Dispensed: 1000 mL bag, Site: #1 right AC. Medication Ordered: IV NS : initial bolus 1000 mL (1000 mL/hr), then none - (NOW). Start 16:00 06/16/2016 Osvaldo Browne, R.N., Stop 16:20 06/16/2016 Osvaldo Browne, R.N. Medication Administered: CEFTRIAXONE [IVPB], Dose: 1 gm IVPB over 20 minute(s), Rate: 120 mL/hr, Dispensed: 50 mL bag, Site: #1 right AC. Medication Ordered: Ceftriaxone IV 1 gm/50mL (NOW).
--- NOTE | 2016-06-16 19:33 | ED DISCHARGE INSTRUCTIONS ---
Patient: ABBIE CANELA General Instructions [facility] VisitID: [id number] [place] [address] 71y, F Registration Date/Time: 06/16/2016 Acute urinary tract infection with cystitis. No pyelonephritis or hematuria. Not associated with indwelling catheter or obstruction. INSTRUCTIONS Warnings: GENERAL WARNINGS: Return or contact your physician immediately if your condition worsens or changes unexpectedly, if not improving as expected, or if other problems arise. Specifically return if problem worsens. Prescription Medications: Cipro 500 mg: take 1 tab orally every 12 hours for 7 days. Dispense fourteen (14). No refills. Substitution is permissible. Follow-up: Follow up with your doctor in about three days even if well. Call for an appointment. Summary of care provided to patient. Understanding of the discharge instructions verbalized by patient. ADDITIONAL INFORMATION Bladder Infection,Female (Adult) A bladder infection ("cystitis" or "UTI") usually causes a constant urge to urinate and a burning when passing urine. Urine may be cloudy, smelly or dark. There may be pain in the lower abdomen. A bladder infection occurs when bacteria from the vaginal area enter the bladder opening (urethra). This can occur from sexual intercourse, wearing tight clothing, dehydration and other factors. Home Care: Drink lots of fluids (at least 6-8 glasses a day, unless you must restrict fluids for other medical reasons). This will force the medicine into your urinary system and flush the bacteria out of your body. Avoid sexual intercourse until your symptoms are gone. Avoid caffeine, alcohol and spicy foods. These can irritate the bladder. A bladder infection is treated with antibiotics. You may also be given Pyridium (generic = phenazopyridine) to reduce the burning sensation. This medicine will cause your urine to become a bright orange color. The orange urine may stain clothing. You may wear a pad or panty-liner to protect clothing. Preventing Future Infections: Always wipe from front to back after a bowel movement. Keep the genital area clean and dry. Drink plenty of fluids each day to avoid dehydration. Both sexual partners should wash before intercourse. Urinate right after intercourse to flush out the bladder. Wear cotton underwear and cotton-lined panty hose; avoid tight-fitting pants. If you are on control pills and are having frequent bladder infections, discuss with your doctor. Follow Up: Return to this facility or see your doctor if ALL symptoms are not gone after three days of treatment. Get Prompt Medical Attention if any of the following occur: Fever of 100.4F (38C) or higher, or as directed by your healthcare provider No improvement by the third day of treatment Increasing back or abdominal pain Repeated vomiting; unable to keep medicine down Weakness, dizziness or fainting Vaginal discharge Pain, redness or swelling in the labia (outer vaginal area) Ciprofloxacin Hydrochloride Oral tablet What is this medicine? CIPROFLOXACIN (sip anne FLOX a sin) is a quinolone antibiotic. It is used to treat certain kinds of bacterial infections. It will not work for colds, flu, or other viral infections. How should I use this medicine? Take this medicine by mouth with a glass of water. Follow the directions on the prescription label. Take your medicine at regular intervals. Do not take your medicine more often than directed. Take all of your medicine as directed even if you think your are better. Do not skip doses or stop your medicine early. You can take this medicine with food or on an empty stomach. It can be taken with a meal that contains dairy or calcium, but do not take it alone with a dairy product, like milk or yogurt or calcium-fortified juice. A special MedGuide will be given to you by the pharmacist with each prescription and refill. Be sure to read this information carefully each time. Talk to your ruling machine feeder regarding the use of this medicine in children. Special care may be needed. What side effects may I notice from receiving this medicine? Side effects that you should report to your doctor or health adult daycare coordinator as soon as possible: - allergic reactions like skin rash, itching or hives, swelling of the face, lips, or tongue - breathing problems - confusion, nightmares or hallucinations - feeling faint or lightheaded, falls - irregular heartbeat - joint, muscle or tendon pain or swelling - pain or trouble passing urine -persistent headache with or without blurred vision - redness, blistering, peeling or loosening of the skin, including inside the mouth - seizure - unusual pain, numbness, tingling, or weakness Side effects that usually do not require medical attention (report to your doctor or health adult daycare coordinator if they continue or are bothersome): - diarrhea - nausea or stomach upset - white patches or sores in the mouth What may interact with this medicine? Do not take this medicine with any of the following medications: cisapride droperidol terfenadine tizanidine This medicine may also interact with the following medications: antacids caffeine cyclosporin didanosine (ddI) buffered tablets or powder medicines for diabetes medicines for inflammation like ibuprofen, naproxen methotrexate multivitamins omeprazole phenytoin probenecid sucralfate theophylline warfarin What if I miss a dose? If you miss a dose, take it as soon as you can. If it is almost time for your next dose, take only that dose. Do not take double or extra doses. Where should I keep my medicine? Keep out of the reach of children. Store at room temperature below 30 degrees C (86 degrees F). Keep container tightly closed. Throw away any unused medicine after the expiration date. What should I tell my health care provider before I take this medicine? They need to know if you have any of these conditions: -bone problems -cerebral disease -joint problems -irregular heartbeat -kidney disease -liver disease -myasthenia gravis -seizure disorder -tendon problems -an unusual or allergic reaction to ciprofloxacin, other antibiotics or medicines, foods, dyes, or preservatives - or trying to get -breast-feeding What should I watch for while using this medicine? Tell your doctor or health adult daycare coordinator if your symptoms do not improve. Do not treat diarrhea with over the counter products. Contact your doctor if you have diarrhea that lasts more than 2 days or if it is severe and watery. You may get drowsy or dizzy. Do not drive, use machinery, or do anything that needs mental alertness until you know how this medicine affects you. Do not stand or sit up quickly, especially if you are an older patient. This reduces the risk of dizzy or fainting spells. This medicine can make you more sensitive to the sun. Keep out of the sun. If you cannot avoid being in the sun, wear protective clothing and use sunscreen. Do not use sun lamps or tanning beds/booths. Avoid antacids, aluminum, calcium, iron, magnesium, and zinc products for 6 hours before and 2 hours after taking a dose of this medicine. You have been given the following additional information: Bladder Infection, Female (Adult) Ciprofloxacin Hydrochloride Oral tablet (Electronically signed by Denisa uH A.R.N.P. 06/16/2016 18:55)
--- NOTE | 2016-06-16 19:33 | ED DISCHARGE INSTRUCTIONS ---
Patient: ABBIE CANELA General Instructions [facility] VisitID: [id number] [place] [address] 71y, F Registration Date/Time: 06/16/2016 Acute urinary tract infection with cystitis. No pyelonephritis or hematuria. Not associated with indwelling catheter or obstruction. INSTRUCTIONS Warnings: GENERAL WARNINGS: Return or contact your physician immediately if your condition worsens or changes unexpectedly, if not improving as expected, or if other problems arise. Specifically return if problem worsens. Prescription Medications: Cipro 500 mg: take 1 tab orally every 12 hours for 7 days. Dispense fourteen (14). No refills. Substitution is permissible. Follow-up: Follow up with your doctor in about three days even if well. Call for an appointment. Summary of care provided to patient. Understanding of the discharge instructions verbalized by patient. ADDITIONAL INFORMATION Bladder Infection,Female (Adult) A bladder infection ("cystitis" or "UTI") usually causes a constant urge to urinate and a burning when passing urine. Urine may be cloudy, smelly or dark. There may be pain in the lower abdomen. A bladder infection occurs when bacteria from the vaginal area enter the bladder opening (urethra). This can occur from sexual intercourse, wearing tight clothing, dehydration and other factors. Home Care: Drink lots of fluids (at least 6-8 glasses a day, unless you must restrict fluids for other medical reasons). This will force the medicine into your urinary system and flush the bacteria out of your body. Avoid sexual intercourse until your symptoms are gone. Avoid caffeine, alcohol and spicy foods. These can irritate the bladder. A bladder infection is treated with antibiotics. You may also be given Pyridium (generic = phenazopyridine) to reduce the burning sensation. This medicine will cause your urine to become a bright orange color. The orange urine may stain clothing. You may wear a pad or panty-liner to protect clothing. Preventing Future Infections: Always wipe from front to back after a bowel movement. Keep the genital area clean and dry. Drink plenty of fluids each day to avoid dehydration. Both sexual partners should wash before intercourse. Urinate right after intercourse to flush out the bladder. Wear cotton underwear and cotton-lined panty hose; avoid tight-fitting pants. If you are on control pills and are having frequent bladder infections, discuss with your doctor. Follow Up: Return to this facility or see your doctor if ALL symptoms are not gone after three days of treatment. Get Prompt Medical Attention if any of the following occur: Fever of 100.4F (38C) or higher, or as directed by your healthcare provider No improvement by the third day of treatment Increasing back or abdominal pain Repeated vomiting; unable to keep medicine down Weakness, dizziness or fainting Vaginal discharge Pain, redness or swelling in the labia (outer vaginal area) Ciprofloxacin Hydrochloride Oral tablet What is this medicine? CIPROFLOXACIN (sip anne FLOX a sin) is a quinolone antibiotic. It is used to treat certain kinds of bacterial infections. It will not work for colds, flu, or other viral infections. How should I use this medicine? Take this medicine by mouth with a glass of water. Follow the directions on the prescription label. Take your medicine at regular intervals. Do not take your medicine more often than directed. Take all of your medicine as directed even if you think your are better. Do not skip doses or stop your medicine early. You can take this medicine with food or on an empty stomach. It can be taken with a meal that contains dairy or calcium, but do not take it alone with a dairy product, like milk or yogurt or calcium-fortified juice. A special MedGuide will be given to you by the pharmacist with each prescription and refill. Be sure to read this information carefully each time. Talk to your reading coach regarding the use of this medicine in children. Special care may be needed. What side effects may I notice from receiving this medicine? Side effects that you should report to your doctor or health customer care manager as soon as possible: - allergic reactions like skin rash, itching or hives, swelling of the face, lips, or tongue - breathing problems - confusion, nightmares or hallucinations - feeling faint or lightheaded, falls - irregular heartbeat - joint, muscle or tendon pain or swelling - pain or trouble passing urine -persistent headache with or without blurred vision - redness, blistering, peeling or loosening of the skin, including inside the mouth - seizure - unusual pain, numbness, tingling, or weakness Side effects that usually do not require medical attention (report to your doctor or health customer care manager if they continue or are bothersome): - diarrhea - nausea or stomach upset - white patches or sores in the mouth What may interact with this medicine? Do not take this medicine with any of the following medications: cisapride droperidol terfenadine tizanidine This medicine may also interact with the following medications: antacids caffeine cyclosporin didanosine (ddI) buffered tablets or powder medicines for diabetes medicines for inflammation like ibuprofen, naproxen methotrexate multivitamins omeprazole phenytoin probenecid sucralfate theophylline warfarin What if I miss a dose? If you miss a dose, take it as soon as you can. If it is almost time for your next dose, take only that dose. Do not take double or extra doses. Where should I keep my medicine? Keep out of the reach of children. Store at room temperature below 30 degrees C (86 degrees F). Keep container tightly closed. Throw away any unused medicine after the expiration date. What should I tell my health care provider before I take this medicine? They need to know if you have any of these conditions: -bone problems -cerebral disease -joint problems -irregular heartbeat -kidney disease -liver disease -myasthenia gravis -seizure disorder -tendon problems -an unusual or allergic reaction to ciprofloxacin, other antibiotics or medicines, foods, dyes, or preservatives - or trying to get -breast-feeding What should I watch for while using this medicine? Tell your doctor or health customer care manager if your symptoms do not improve. Do not treat diarrhea with over the counter products. Contact your doctor if you have diarrhea that lasts more than 2 days or if it is severe and watery. You may get drowsy or dizzy. Do not drive, use machinery, or do anything that needs mental alertness until you know how this medicine affects you. Do not stand or sit up quickly, especially if you are an older patient. This reduces the risk of dizzy or fainting spells. This medicine can make you more sensitive to the sun. Keep out of the sun. If you cannot avoid being in the sun, wear protective clothing and use sunscreen. Do not use sun lamps or tanning beds/booths. Avoid antacids, aluminum, calcium, iron, magnesium, and zinc products for 6 hours before and 2 hours after taking a dose of this medicine. You have been given the following additional information: Bladder Infection, Female (Adult) Ciprofloxacin Hydrochloride Oral tablet (Electronically signed by Denisa Hu A.R.N.P. 06/16/2016 18:55)
--- NOTE | 2016-06-16 19:33 | ED MAR SUMMARY ---
..... Medication Administration Record [facility] [address] [place] [place] [address] Patient: ABBIE CANELA Visit ID: [id number] 71y, F Weight: 81.6 kg Height/Length: 57 in BMI: 39 ALLERGIES: Sulfa Antibiotics Start 14:08 06/16/2016 Osvaldo Browne R.N., Stop 15:23 06/16/2016 Holli Hardwick R.N. Medication Administered: IV NS (SALINE), Dose: IV Fluids over 60 minute(s), Rate: 999 mL/hr, Dispensed: 1000 mL bag, Site: #1 right AC. Medication Ordered: IV NS : initial bolus 1000 mL (1000 mL/hr), then none - (NOW). Start 16:00 06/16/2016 Osvaldo Browne, R.N., Stop 16:20 06/16/2016 Osvaldo Browne, R.N. Medication Administered: CEFTRIAXONE [IVPB], Dose: 1 gm IVPB over 20 minute(s), Rate: 120 mL/hr, Dispensed: 50 mL bag, Site: #1 right AC. Medication Ordered: Ceftriaxone IV 1 gm/50mL (NOW).
== END 2016-06-16 17:10 | disposition home or self-care (01) ==
LOC: ED SRH 12:47
DX: N30.90 Cystitis, unspecified without hematuria (principal); Z87.891 Personal history of nicotine dependence; I13.0 Hypertensive heart and chronic kidney disease with heart failure and stage 1 through stage 4 chronic kidney disease, or unspecified chronic kidney disease; I50.9 Heart failure, unspecified; N19 Unspecified kidney failure; E11.29 Type 2 diabetes mellitus with other diabetic kidney complication; E78.5 Hyperlipidemia, unspecified; F03.90 Unspecified dementia, unspecified severity, without behavioral disturbance, psychotic disturbance, mood disturbance, and anxiety; Z86.73 Personal history of transient ischemic attack (TIA), and cerebral infarction without residual deficits; Z86.711 Personal history of pulmonary embolism
CPT/HCPCS: 81460; 90004; 90070; 90074; 90100; 90469; 90616; 91585; 91672; 92610; 92720; 93004; 93140; 95059